=== PATIENT | male | born 1985 | race Caucasian/White ===

== ENCOUNTER 2023-12-05 22:13 | Emergency (ER) | payer OTHER, SELFPAY ==
[2023-12-05 22:25] VITALS: BP 141/87; PULSE 93; RESP 18; TEMP 37.2; O2SAT 98; BMI 36.6
== END 2023-12-06 | disposition left against medical advice (07) ==
LOC: ED 23:47
DX: Z53.21 Procedure and treatment not carried out due to patient leaving prior to being seen by health care provider (principal)

== ENCOUNTER 2023-12-06 08:42 | Emergency (ER) | payer BC, SELFPAY ==
[2023-12-06 08:51] VITALS: BP 145/95; PULSE 91; RESP 18; TEMP 36.3; O2SAT 98; BMI 37.3
--- NOTE | 2023-12-06 09:16 | CRLHL7_ITS ---
For Patients: As a result of the Cures Act, medical imaging exams and procedure reports are released immediately into your electronic medical record. You may view this report before your referring provider. If you have questions, please contact your health care provider. INDICATION: Chest pain. COMPARISON: Chest x-ray dated 22 May 2019. FINDINGS: PA and lateral chest x-rays show a normal cardiac silhouette. The lungs show no focal pulmonary opacities. Sharp pleural margins. No pneumothorax. IMPRESSION: No focal pulmonary opacities. No pneumothorax. Dictated by Julio C Carlisle MD @ 12/06/2023 9:53:51 AM (Electronically Signed)
--- NOTE | 2023-12-06 09:17 | ED.GENADULT ---
HPI - General Adult General Chief complaint: Flank Pain Stated complaint: Difficulty breathing, chest pain Time Seen by Provider: 12/06/23 08:58 History of Present Illness HPI narrative: Patient is a 38-year-old gentleman who comes in with 5 days of intermittent chest pain dysuria flank pain neck pain headache general malaise and fatigue. He is not able to identify any aggravating or alleviating factors. All symptoms are moderate in intensity. He has had no blood in his stool or urine. No shortness of breath with exertion. No other related symptoms. Patient takes Adderall and thyroid replacement as his only medications. Patient states he has been under quite a bit of stress recently and has been drinking more red bull. Related Data Home Medications ?Medication ?Instructions ?Recorded ?Confirmed levothyroxine 150 mcg tablet 150 mcg PO DAILY 12/06/23 12/06/23 methylphenidate HCl 36 mg 36 mg PO DAILY 12/06/23 12/06/23 tablet,extended release 24 hr (Concerta) Allergies Allergy/AdvReac Type Severity Reaction Status Date / Time Milk Containing Products Allergy Mild Verified 12/06/23 08:50 (Dairy) Review of Systems Status of ROS: Reports: 10 or more systems reviewed and unremarkable except as noted in History and below [facility] Medical History ADHD ?F90.9 - Attention-deficit hyperactivity disorder, unspecified type (ICD-10) Hypothyroidism ?E03.9 - Hypothyroidism, unspecified (ICD-10) Social History Smoking Status: Smoker, status unknown Exam Narrative: Exam Narrative: EXAM GENERAL: Patient appears comfortable and well. EYES: No scleral icterus. LYMPH: No supraclavicular or cervical lymphadenopathy. SKIN: Visible skin seen during exam normal or with benign process only. EXT: No dependent lower extremity pedal edema. HEART: Regular rate and rhythm with no murmurs, rubs, or gallops. LUNGS: Clear to auscultation bilaterally with no crackles or wheezes. ABD: Soft, non tender, non distended. PSYCH: Good eye contact, speech is not pressured. Const: Vital Signs, click to edit/add: Vital Signs - 24 hr 12/06/23 08:51 Temperature 97.4 F L Pulse Rate [Pulse Oximeter] 91 Respiratory Rate 18 Blood Pressure [Ri ght Upper Arm] 145/95 H Pulse Oximetry 98 Oxygen Delivery Me thod Room Air Course Course ED Course: This point will begin workup with D-dimer troponin CBC comprehensive metabolic panel UA chest x-ray. Vital Signs Vital signs: Initial Vital Signs Temperature 97.4 F L 12/06/23 08:51 Temperature Source Temporal Artery Scan 12/06/23 08:51 Pulse Rate 91 12/06/23 08:51 Pulse Rhythm Regular 12/06/23 08:51 Respiratory Rate 18 12/06/23 08:51 Blood Pressure 145/95 H 12/06/23 08:51 Blood Pressure Mean 111 H 12/06/23 08:51 Blood Pressure Position Sitting 12/06/23 08:51 Pulse Oximetry 98 12/06/23 08:51 Oxygen Delivery Method Room Air 12/06/23 08:51 Vital Signs Temperature 97.4 F L 12/06/23 08:51 Pulse Rate 91 12/06/23 08:51 Respiratory Rate 18 12/06/23 08:51 Blood Pressure 145/95 H 12/06/23 08:51 Pulse Oximetry 98 12/06/23 08:51 Oxygen Delivery Method Room Air 12/06/23 08:51 Temperature 97.4 F L 12/06/23 08:51 Pulse Rate 91 12/06/23 08:51 Respiratory Rate 18 12/06/23 08:51 Blood Pressure 145/95 H 12/06/23 08:51 Pulse Oximetry 98 12/06/23 08:51 Oxygen Delivery Method Room Air 12/06/23 08:51 Medical Decision Making MDM Narrative Medical decision making narrative: Patient is a 38-year-old with a number of symptoms today. Workup has shown that he is a new diabetic with a blood sugar greater than 350. Also has kidney stone on the right. In addition he has evidence of fatty liver both on CT and on transaminase levels. At this time I did for him of these diagnoses. We will ask him drink plenty of fluids and get plenty of rest. I did send off hemoglobin A1c and did recommend follow-up with his primary physician. He does have evidence of hydronephrosis no believe he is having active kidney stone pain at this time and I did not start him on Flomax. We did send him home with a stone collection kit. I recommend diet exercise and weight loss. He may be a good candidate for metformin or GLP 1 inhibitor. Again he will be following up with his primary physician this coming week. Lab Data Labs: Lab Results 12/06/23 12/06/23 Range/Units 09:31 09:35 WBC 4.75 (4.50-11.00) K/uL RBC 4.76 (4.30-5.90) m/uL Hgb 14.2 (13.5-17.5) gm/dL Hct 40.6 (37.0-53.0) % MCV 85 (80-100) fL MCH 30 (26-34) pg MCHC 35 (32-36) gm/dL RDW Coeff of Etelvina 12.3 (11.5-15.5) % Plt Count 158 (140-440) K/uL Neut % (Auto) 53.7 (42.0-72.0) % Lymph % (Auto) 34.9 (20-44) % Josephine % (Auto) 7.2 (0.0-11.0) % Eos % (Auto) 2.3 (0.0-7.0) % Baso % (Auto) 0.6 (0.0-3.0) % Neut # (Auto) 2.55 (1.7-7.0) K/uL Lymph # (Auto) 1.66 (0.90-2.90) K/uL Josephine # (Auto) 0.30 (0.00-0.90) K/UL Eos # (Auto) 0.11 (0.00-0.50) K/uL Baso # (Auto) 0.03 (0.00-0.30) K/uL Abs Immat Gran (auto) 0.06 (0.00-0.30) K/uL Imm/Tot Granulo (auto) 1.3 % D-Dimer Quant (PE/DVT) < 0.27 (0.00-0.50) ug/ml Sodium 133 L (135-149) mmol/L Potassium 3.8 (3.6-5.1) mmol/L Chloride 100 (96-114) mmol/L Carbon Dioxide 25 (20-32) mmol/L Anion Gap 8 (7-15) mEq/L BUN 15 (5-24) mg/dL Creatinine 0.7 (0.5-1.5) mg/dL Estimated Creat Clear 158.59 Estimated GFR 122 ml/min Glucose 324 H (60-115) mg/dL Calcium 8.8 (8.4-10.6) mg/dL Total Bilirubin 0.6 (0.1-1.5) mg/dL AST 66 H (12-35) U/L ALT 105 H (4-50) U/L Alkaline Phosphatase 78 (40-150) U/L Troponin I < 0.01 L (0.01-0.04) ng/mL Total Protein 6.8 (6.0-8.3) g/dL Albumin 4.0 (3.3-5.0) g/dL Lipase 60 (23-300) U/L Urine Color Yellow (Yellow) Urine Appearance Clear (Clear) Urine pH 5.5 (5.0-8.5) Ur Specific [place] 1.015 (1.000-1.030) Urine Protein Negative (Negative) Urine Glucose (UA) 2+ A (Negative) Urine Ketones Negative (Negative) Urine Blood 2+ A (Negative) Urine Nitrite Negative (Negative) Urine Bilirubin Negative (Negative) Urine Urobilinogen 0.2 (0.2-1.0) Ur Leukocyte Esterase Negative (Negative) Urine RBC 10-25 A (0-2) Urine WBC 0-2 (0-5) Ur Squamous Epith Cells Few (None-Few) Urine Bacteria Few A (None) Discharge Plan Discharge Clinical Impression: Diabetes mellitus, Kidney calculi, Fatty liver Instructions: Kidney Stones (ED), Non-Alcoholic Fatty Liver Disease (ED), Diabetic Hyperglycemia (ED) Additional Instructions: Strain urine Drink plenty of fluids Diet Exercise Weight loss Primary care follow-up Activity Level: No Restrictions Discharge Diet: Regular Prescriptions: No Action levothyroxine 150 mcg tablet 150 mcg PO DAILY methylphenidate HCl [Concerta] 36 mg tablet extended release 24hr 36 mg PO DAILY Follow Up/Referrals: Provider,Not a Local [Primary Care Provider] -
[2023-12-06 09:42] LABS: Basophils Absolute Auto 0.03 K/uL (0.00-0.30); Basophils Percent Auto 0.6 % (0.0-3.0); Eosinophils Absolute Auto 0.11 K/uL (0.00-0.50); Eosinophils Percent Auto 2.3 % (0.0-7.0); Hematocrit 40.6 % (37.0-53.0); Hemoglobin* 14.2 gm/dL (13.5-17.5); Immature Granulocytes Abs Auto 0.06 K/uL (0.00-0.30); Immature Granulocytes Pct Auto 1.3 %; Lymphocytes Absolute Auto 1.66 K/uL (0.90-2.90); Lymphocytes Percent Auto 34.9 % (20-44); Mean Corpuscular HGB Conc 35 gm/dL (32-36); Mean Corpuscular Hemoglobin 30 pg (26-34); Mean Corpuscular Volume 85 fL (80-100); Monocytes Percent Auto 7.2 % (0.0-11.0); Neutrophils Absolute Auto 2.55 K/uL (1.7-7.0); Neutrophils Percent Auto 53.7 % (42.0-72.0); Platelet Count* 158 K/uL (140-440); RDW Coefficient of Variation % 12.3 % (11.5-15.5); Red Blood Count 4.76 m/uL (4.30-5.90); White Blood Count* 4.75 K/uL (4.50-11.00)
[2023-12-06 09:43] LABS: Slide Review Reflex No
[2023-12-06 09:53] LABS: Appearance Urine Clear (Clear); Bilirubin Urine Negative (Negative); Blood Urine 2+ (Negative); Color Urine Yellow (Yellow); Glucose Urine 2+ (Negative); Ketones Urine Negative (Negative); Leukocyte Esterase Urine Negative (Negative); Nitrite Urine Negative (Negative); Protein Urine Negative (Negative); Specific Gravity Urine 1.015 (1.000-1.030); Urobilinogen Urine 0.2 (0.2-1.0); pH Urine 5.5 (5.0-8.5)
[2023-12-06 09:59] LABS: Chloride* 100 mmol/L (96-114)
[2023-12-06 10:00] LABS: Potassium* 3.8 mmol/L (3.6-5.1); Sodium* 133 mmol/L (135-149)
[2023-12-06 10:02] LABS: Alkaline Phosphatase* 78 U/L (40-150); Anion Gap 8 mEq/L (7-15); Aspartate Amino Transferase* 66 U/L (12-35); Bilirubin Total* 0.6 mg/dL (0.1-1.5); Blood Urea Nitrogen* 15 mg/dL (5-24); Carbon Dioxide* 25 mmol/L (20-32); Creatinine* 0.7 mg/dL (0.5-1.5); Est. Creatinine Clearance* 158.59; Estimated Glomerular Filt Rate 122 ml/min; Total Protein* 6.8 g/dL (6.0-8.3)
[2023-12-06 10:03] LABS: Alanine Aminotransferase* 105 U/L (4-50); Calcium* 8.8 mg/dL (8.4-10.6); Glucose* 324 mg/dL (60-115)
[2023-12-06 10:06] LABS: WBC Urine 0-2 (0-5)
[2023-12-06 10:07] LABS: Bacteria Urine Few; Squamous Epithelial Cell Urine Few (None-Few)
[2023-12-06 10:12] LABS: D Dimer Quantitative* < 0.27 ug/ml (0.00-0.50)
[2023-12-06 10:15] LABS: Troponin I* < 0.01 ng/mL (0.01-0.04)
--- NOTE | 2023-12-06 10:21 | CRLHL7_ITS ---
For Patients: As a result of the Century Cures Act, medical imaging exams and procedure reports are released immediately into your electronic medical record. You may view this report before your referring provider. If you have questions, please contact your health care provider. INDICATION: Concern for kidney stones flank pain TECHNIQUE: CT abdomen and pelvis without contrast. COMPARISON: None. FINDINGS: Lower chest: Right basilar probable granuloma. Liver: Severe fatty liver. Gallbladder and bile ducts: No stones or inflammation. No biliary dilatation. Pancreas: Unremarkable. No mass or inflammation. Spleen: Mild splenomegaly measuring 15.3 centimeters. Adrenal glands: Normal in size. No nodules. Kidneys: Low-attenuation lesion left lateral kidney incompletely assessed but may represent a cyst. No hydronephrosis is seen no renal calculi. There is a 5 millimeter probable right distal ureteral stone there is no dilatation of the ureter seen this is seen on 03/13 26 : GI tract: Unremarkable. Vasculature: Abdominal aorta is normal in caliber. Lymph nodes: No lymphadenopathy. Peritoneum/Abdominal Wall: Unremarkable. No sign of mass or infiltration. No free air or significant free fluid. Pelvis: Unremarkable. No pelvic masses. Bones: Unremarkable for age. IMPRESSION: 1. A 5 millimeter probable right distal ureteral stone there is no dilatation of the ureter seen there is no renal calculi or hydronephrosis visualized. 2. Severe fatty liver. Mild splenomegaly. Please note that all CT scans at this facility use dose modulation, iterative reconstruction, and/or weight-based dosing when appropriate to reduce radiation dose to as low as reasonably achievable. Dictated by Aimee Carlisle MD @ 12/06/2023 10:53:51 AM (Electronically Signed)
[2023-12-06 10:39] LABS: Lipase* 60 U/L (23-300)
[2023-12-06 11:20] LABS: Hemoglobin A1C* 9.1 % (0-5.6)
[2023-12-06 12:02] VITALS: BP 139/88; PULSE 82; RESP 16; TEMP 36.3
== END 2023-12-06 12:00 | disposition home or self-care (01) ==
LOC: ED 09:37
PROVIDERS: Emergency Provider Internal Medicine; Visit Provider Internal Medicine
DX: E11.9 Type 2 diabetes mellitus without complications (principal); N20.0 Calculus of kidney; K76.0 Fatty (change of) liver, not elsewhere classified
CPT/HCPCS: 36415; 71046; 74176; 80053; 81001; 81003; 83036; 83690; 84484; 85025; 85379; 87086; 93005; 99283; 99284; 99285

== ENCOUNTER 2024-02-16 11:58 | Emergency (ER) | payer BC, SELFPAY ==
--- OUTSIDE RECORDS SUMMARY | 2024-02-16 12:00 | XMS_ITS | Clinical Summary ---
Author Organization [facility] & [facility] Address [place] [address] Care Team Providers Care Bulb Grower Name Role Phone Love Mondragon MD Primary Care Provider [phone] Social History Tobacco Use Types Packs/Day Years Used Date Smoking Tobacco: Never Assessed Sex and Gender Information Value Date Recorded Sex Assigned at Not on file Legal Sex Male 3:14 PM CDT Gender Identity Not on file Sexual Orientation Not on file Plan of Treatment Not on file Insurance WC [employer] Care Teams Bulb Grower Relationship Specialty Start Date End Date Love Mondragon MD PCP - General 07/02/16
--- OUTSIDE RECORDS SUMMARY | 2024-02-16 12:00 | XMS_ITS | Clinical Summary ---
Author Organization [facility] Address [address] [address] Phone Care Team Providers Care Plant Protection Superintendent Name Role Phone Unavailable Primary Care Provider Unavailabl e Allergies No known active allergies Social History Tobacco Use Types Packs/Day Years Used Date Smoking Tobacco: Never Assessed Comments Unknown Sex and Gender Information Value Date Recorded Sex Assigned at Not on file Legal Sex Female 2:46 PM CDT Gender Identity Not on file Sexual Orientation Not on file Last Filed Vital Signs Vital Sign Reading Time Taken Comments Blood Pressure 150/101 11/10/2021 3:08 PM CDT Pulse 75 11/10/2021 3:08 PM CDT Temperature 37.1 C (98.8 F) 11/10/2021 3:08 PM CDT Respiratory Rate 16 11/10/2021 3:08 PM CDT Oxygen Saturation 98% 11/10/2021 3:08 PM CDT Inhaled Oxygen Concentration - - Weight 129.3 kg (285 lb) 11/10/2021 3:08 PM CDT Height 182.9 cm (6') 11/10/2021 3:08 PM CDT Body Mass Index 38.65 11/10/2021 3:08 PM CDT Plan of Treatment Health Maintenance Due Date Last Done Comments Cervical Cancer Screening 1986 Last pap w/ HPV Testing 1986 Last pap w/o HPV Testing 1986 Hepatitis B Vaccine (Standin g Order) (1 of 3 - 19+ 3-dose series) 2005 PERTUSSIS (Standing Order) 2005 TETANUS (Standing Order) 2005 COVID-19 Vaccine (2023-2 5 season) 2023 Influenza Vaccine Seasonal (Standing Order) (#1) 2023 HPV Vaccine (Standing Order) Aged Out No longer eligible based on patient's age to complete this topic Pneumococcal/PCV20 Vaccine: Pediatrics (2-5 yrs) and At-Risk Patients (6-64 yrs) (Standing Order) Aged Out No longer eligible b ased on patient's age to complete this topic Insurance [employer] [id number]
--- OUTSIDE RECORDS SUMMARY | 2024-02-16 12:01 | XMS_ITS | Encounter Summary ---
Author Organization [facility] Address [address] [place] [address] Care Team Providers Care Car Clerk Pullman Name Role Phone Love Mondragon MD Primary Care Provider [phone] Reason for Visit * Reason Comments RESULTS, TEST Encounter Details Date Type Department Care Team (Late st Contact Info) Description 01/09/2024 Telephone [facility] [address] [place] [address] [place] [address] [place] [address] RESULTS, TEST Social History Tobacco Use Types Packs/Day Years Used Date Smoking Tobacco: Never Cigarettes Qu it: 02/10/2005 Smokeless Tobacco: Never Alcohol Use Standard Drinks/Week Comments Yes 0 (1 standard drink = 0.6 oz pur e alcohol) occasionally PHQ-2 Answer Date Recorded PHQ-2 Score 0 07/21/2023 Sex and Gender Information Value Date Recorded Sex Assigned at Not on file Gender Identity Not on file Sexual Orientation Not on file documented as of this encounter Nursing Notes * Roselyn Garcia RN - 01/20/2024 8:09 AM CST Relayed Love Mondragon MD's message below to patient. Pt has a meeting in 5 minutes, so declined to be transferred to [facility]. Number given to pt. He will call back and schedule. Roselyn Garcia RN 01/20/2024, 8:10 AM CTOR OF SAFETY * Love Mondragon MD - 01/16/2024 5:21 PM CST I would want patient to schedule an OV to further discuss. Love Mondragon MD 01/16/2024, 5:21 PM CTOR OF SAFETY * Penny Ramirez RN - 01/16/2024 11:[address] Mondragon - please review and advise: RN relayed information/recommendations to pt from Dr. Mondragon. Pt asked if he can get another CT that would actually scan and look for the sternal region this time? Penny Ramirez RN 01/16/2024, 11:47 AM CTOR OF SAFETY * Love Mondragon MD - 01/16/2024 11:17 AM CST Cxray from 12/18 does not show sternal irregularities. His CT abd/pelvis only scans bottom portion of lungs so would not include sternal region. Love Mondragon MD 01/16/2024, 11:18 AM CTOR OF SAFETY * Jenny Camarillo CMA - 01/12/2024 9:23 AM CST Called and relayed information to pt. Pt understands information below and agrees with plan. Pt states he would like for Love Mondragon MD to look at the CT and xray again as he forgot to mention that about 4 years ago he was hit in hockey and has had a lump under his sternum ever since then. He states he doesn't know if this is contributing to his sxs and pain but wanted to see if Love Mondragon MD saw any irregularities. Okay to wait for Love Mondragon MD to return and review on 01/16/24 Jenny Camarillo CMA 01/12/2024, 9:25 AM CTOR OF SAFETY * Elyssa Vences CMA - 01/09/2024 2:03 PM CST Left patient message to call back. Elyssa Vences CMA 01/09/2024, 2:04 PM CTOR OF SAFETY * Elyssa Vences CMA - 01/09/2024 2:03 PM CST ----- Message from Lorrie Vicente sent at 01/09/2024 1:32 PM DIRECTOR OF SAFETY ----- Covering for PCP. Please call patient and let him know that stress echocardiogram showed no concerning findings. CTOR OF SAFETY documented in this encounter Plan of Treatment Not on file documented as of this encounter Visit Diagnoses Not on filedocumented in this encounter Care Teams Car Clerk Pullman Relationship Specialty [place] [address] [place] [address] PCP - General Family Practice 09/18/12 documented as of this encounter
--- OUTSIDE RECORDS SUMMARY | 2024-02-16 12:01 | XMS_ITS | Encounter Summary ---
Author Organization [facility] Address [address] [place] [address] Care Team Providers Care Stream Control Officer Name Role Phone Love Mondragon MD Primary Care Provider [phone] Reason for Visit * Consult/Transfer Care (Routine) - New Request Specialty Diagnoses / Procedures Referred By Contac t Referred To Contact Diagnoses Type 2 diabetes mellitus with obesity (HRC) [place] [address] [place] [address] Referral ID Status Reason Start Date Expiration Date V isits Requested Visits Authorized [id number] New Request 12/19/2023 03/19/2025 1 1 Encounter Details Date Type Department Care Team (Latest Contact Info) Description 01/12/2024 10:30 AM GOLF COURSE MECHANIC Telemedicine Diabetes Education at [facility] [address] [place] [address] Emily Alberto, MALLORYN, LD, [facility] [address] [place] [address] Type 2 diabetes mellitus without complication, without long-term current use of insulin (HRC) (Primary Dx) Social History Tobacco Use Types Packs/Day Years [...] on file documented as of this encounter Patient Instructions * Patient Instructions* Emily Alberto RDN, SORAIDA, RENY - 01/12/2024 10:30 AM GOLF COURSE MECHANIC What if the [employer] Libre3+ sensor falls off early? Replace the sensor and start a new sensor. If the sensor falls off early, please call [employer] Customer Support at for potential replacement. Tips to help keep the Libre3+ CGM on all 14 days: -Tegaderm or Coban (on top of sensor) -Razor (shave off any extra hair on back of arm) -Skin Tac (underneath the sensor): a hypo-allergenic and latex-free ???tacky?? skin barrier -Mastisol Liquid Skin Adhesive (underneath the sensor): a clear, non-irritating liquid adhesive - Adhesive patch (on top of sensor): examples: Fixic, Not Just a Patch, SimPatch, Grif Senior Database Engineer, Pump Peelz, ExpressionMed, Skin Reinforced Steel Placing Supervisor, Type Strong, etc (just google for options) To register for ongoing support and info on how to use your Libre3, sign up at: [email or web address] COURSE MECHANIC * Attachments The following attachments cannot be sent through Care Everywhere. * !Diabetes: What you need to know (Comoran) * !Diabetes Meal Planning ([place]oran) documented in this encounter Progress Notes * Emily Alberto, RDN, LD, [facility] - 01/12/2024 10:30 AM CST Images from the original note were not included. Subjective: Called [facility] for diabetes education video visit. This is an individual appointment. No group option available/appropriate for patient at this time. What is the most important concern you want to discuss today? Reports he just started Libre3 and finds the information helpful Asking how to best use CGM data Wondering about what happens when glucose is elevated How are you feeling about having diabetes? Its a learning curve Is there anything preventing you from managing your diabetes? no Patient has experienced the following symptoms: None. Is your CGM affordable? yes Are you using any technology to help manage your diabetes? Libre3, sharing on Mango Current diabetes medications: none, declines medications taking Berberine supplement and meeting with diabetes ed through [facility] clinic Schedule: , has five young children, Works full-time in sedentary job Food Recall: eating two meals per day Snacks: eggs, nuts, cheese stick Nutrition changes - stopped sugared energy drinks & soda (previously drinking 2x/day) Beverages - tea (sweetened with honey), and water Current physical activity - just signed up for [employer] Objective: Wt Readings from Last 3 Encounters: 12/19/23 270 lb (122.5 kg) 06/28/22 286 lb 12.8 oz (130.1 kg) 04/03/20 285 lb (129.3 kg) Hemoglobin A1C Date Value Ref Range Status 07/21/2023 8.6 (H) <=5.6 % Final 06/28/2022 6.8 (H) <=5.6 % Final 10/13/2020 5.9 (H) <=5.6 % Final Lab results related to diabetes have been reviewed. Assessment and Plan: Reviewed goal/target BG and A1c levels, and risk of complications from persistently elevated glucose. Discussed how carbs/diet, exercise, and weight affect BG, but also many other factors. Reviewed MyPlate, and the importance of three small meals per day. Encouraged RD appointment to better understand effects of diet and to optimize nutrition intake. Strongly encouraged adding medication and briefly discussed options, however, patient declined at this time with preference of continuing lifestyle changes and reassess in a couple months. Discussed CGM use in detail, including how to interpret and use glucose data. Discussed GMI and TIR. Plan: Obtain updated HgbA1c Meet with dietitian Continue with lifestyle changes Goals: Date: Category: Goals: Progression: 01/12/2024 Monitoring Diabetes Monitor glucose daily On Track Mailed home x2 different CGM handouts and the [employer] handout Follow-up in 1-2 months. Quick schedule text sent to patient. This visit was conducted as a: Video Visit Location of clinician: clinic Location of patient: home Time spent on video in [id number] contact with patient, if applicable: 55 minutes Education content taught can be found in the diabetes education smartform COURSE MECHANIC documented in this encounter Plan of Treatment Scheduled Orders Name Type Priority Associated Diagnoses Orde r Schedule Hgb A1C Lab Routine Type 2 diabetes mellitus without complication, without long-term current use of insulin (HRC) Expected: 01/19/2024 (Approximate), Expires: 07/12/2024 documented as of this encounter Visit Diagnoses Diagnosis Type 2 diabetes mellitus without complication, without long-term current use of insulin (HRC)- Primary documented in this encounter Care Teams Stream Control Officer Relationship Specialty [place] [address] [place] [address] PCP - General Family Practice 09/18/12 documented as of this encounter
--- OUTSIDE RECORDS SUMMARY | 2024-02-16 12:01 | XMS_ITS | Clinical Summary ---
Author Organization [facility] Address [address], [place] [address] Care Team Providers Care Rn Infusion Name Role Phone Love Mondragon MD Primary Care Provider [phone] Source Comments You are receiving this document as you are listed as the primary care provider,follow-up provider, or the patient has been referred to you for consultation.This is in compliance with the Medicare and[place] EHR Incentive Program,which states Providers who transition their patient to another setting of careor provider of care or refers their patient to another provider of care shouldprovide summary care record for each transition of care or referral. [facility] Active Allergy Reactions Criticality Noted Date Comments Other Other, see comments 06/28/2022 Dairy: Upset stomach and loose stool Medications Medication Sig Dispensed Refills Start Date End Date Status CLINDAMYCIN PHOSPHATE (CLEOCIN-T) 1% TOPICAL SOLNIndications:Othe r acne Apply a thin film topically to the affected area(s) twice a day 1bottle prn 01/23/2004 Active MULTI-VITAMIN/IRON OR takes 1 a day 01/29/2007 Active acyclovir (ZOVIRAX) 5 % ointment apply TID for outbreaks 15 gram 2 09/14/2008 Active FISH OIL three times a day. Active Naproxen (ECNAPROSYN) 500 MG enteric coated tablet Take 1 Tab by mouth two times a day with meals. 60 Tab 3 07/16/2016 Active ibuprofen (MOTRIN) 600 MG tablet Take 1 Tab by mouth every 6 hours as needed for Pain. 20 Tab 04/14/2017 Active diclofenac (VOLTAREN) 25 MG enteric coated tablet Take 1 Tab by mouth two times daily as needed. 60 Tab 1 05/09/2017 Active ALBUterol sulfate HFA 108 (90 Base) MCG/ACT inhalerIndications:S OB (shortness of breath) Inhale 2 Puffs every 4 hours as needed for Wheezing. 1 Each 2 10/13/2020 Active acyclovir (ZOVIRAX) 5 % ointment Apply TID for outbreaks 15 g 2 06/28/2022 Active levothyroxine (SYNTHROID) 150 MCG tabletIndications:Hy pothyroidism, unspecified type (HRC) Take 1 Tablet (150 mcg) by mouth daily. 30 Tablet 11 07/21/2023 Active Continuous Glucose Sensor (FREESTYLE UCHE 3 PLUS SENSOR) MISCIndications:Type 2 diabetes mellitus without complication, without long-term current use of insulin (HRC) Change every 15 days 2 Each 11 12/29/2023 Active CONCERTA 36 MG controlled release tablet Take 1 Tablet (36 mg) by mouth daily. 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 . Good from 11/28-11/29. Love Mondragon MD 11/27/2018, 9:09 AM Encounters Date Type Department Care Team Description 01/12/2024 10:30 AM PRINTED CIRCUIT BOARDS LAMINATOR Telemedicine Diabetes Education at [address] [place] [phone] Emily Alberto, MALLORYN, LD, CDCES Type 2 diabetes mellitus without complication, without long-term current use of insulin (HRC) (Primary Dx) 01/09/2024 10:00 AM PRINTED CIRCUIT BOARDS LAMINATOR Procedure Visit [facility] Cardiac Non-Invasive Lab [address] [place] [address] Aung Matt 01/09/[address] [phone] Love Mondragon MD RESULTS, TEST 01/05/[address] [phone] Love Mondragon MD Refill (CONCERTA 36 MG controlled release tablet) 12/29/2023 2:00 PM PRINTED [employer] BOARDS LAMINATOR Telemedicine [address] [address] Eda Kat RN Type 2 diabetes mellitus without complication, without long-term current use of insulin (HRC) (Primary Dx) 12/22/[address] [phone] Love Mondragon MD RESULTS, TEST 12/19/2023 2:20 PM PRINTED CIRCUIT BOARDS LAMINATOR Ancillary Procedure [facility] [address] [address] Scan [id number] [place] [address] Love Mondragon MD Kidney stones; Right flank pain 12/19/2023 10:40 AM PRINTED [employer] BOARDS LAMINATOR Lab Visit Laboratory at [address] [phone] Kidney stones; Right flank pain 12/19/2023 10:20 AM PRINTED [employer] BOARDS LAMINATOR Ancillary Procedure Radiology at [address] [phone] Love Mondragon MD Left-sided chest pain 12/19/2023 9:30 AM PRINTED [employer] BOARDS LAMINATOR Office Visit [address] [phone] Love Mondragon MD Left-sided chest pain (Primary Dx); Kidney stones; Right flank pain; Splenomegaly; Type 2 diabetes mellitus with obesity (HRC); Neck pain; Upper back pain; Chronic low back pain without sciatica, unspecified back pain laterality; Fatty liver (HRC) 12/19/2023 Telephone [facility] [address] [place] [phone] Love Mondragon MD from Last 3 Months Immunizations Name Administration Dates Next Due DTP 05/04/1991, 9,1986, 987,1986 Flu Vac (3+ yrs) 01/06/2008,02/19/2005 Flu Vac Preserv Free (3+yrs) 02/21/2009 H1n1 Miv Sanofi 3+ Yr (Injected) 02/21/2009 HepA Adult (19+ yrs) 07/04/2016 HepB Ped/Adol (0-18 yrs) 02/13/1999,06/09/1998,0 05/02/1998 Hib (HbOC) 04/29/1988 Influenza IIV4 (Quadrivalent ) 0.5mL (54524) 11/27/2018 Influenza LAIV3 2-49 years (Flumist) 01/03/2010 MCV4 (Menactra) 02/19/2005 MMR 05/02/1998,08/08/1987 OPV, Trivalent (Orimune or tOPV) 992,04/29/1988,1986, 987 Td 05/02/1998 Tdap 04/12/2015,01/06/2008 Varicella 04/26/1997(Deferred: Immune by Dewayne westfall) Family History Medical History Relation Name Comments Thyroid Disorder Mother Deafness Maternal Grandfather Diabetes Maternal Grandmother Diabetes, Type II Maternal Grandmother Cancer, Other Paternal Grandfather Asthma Sister Relation Name Status Comments Father Alive Mother Alive Maternal Grandfather Maternal Grandmother Paternal Grandfather Sister Alive Social History Tobacco Use Types Packs/Day Years Used Date Smoking Tobacco: Never Cigarettes Qu it: 02/10/2005 Smokeless Tobacco: Never Tobacco Cessation:Counseling Given: Not Answered Alcohol Use Standard Drinks/Week Comments Yes 0 (1 standard drink = 0.6 oz pur e alcohol) occasionally PHQ-2 Answer Date Recorded PHQ-2 Score 0 07/21/2023 Sex and Gender Information Value Date Recorded Sex Assigned at Not on file Gender Identity Not on file Sexual Orientation Not on file Last Filed Vital Signs Vital Sign Reading Time Taken Comments Blood Pressure 122/85 12/19/2023 9:27 AM PR[employer]ED [employer] BOARDS LAMINATOR Pulse 71 12/19/2023 9:27 AM [employer]ED [employer] BOARDS LAMINATOR Temperature 36.6 C (97.9 F) 12/19/2023 9:27 AM [employer]ED [employer] BOARDS LAMINATOR Respiratory Rate 20 12/19/2023 9:27 AM PR[employer]ED [employer] BOARDS LAMINATOR Oxygen Saturation 97% 12/19/2023 9:27 AM [employer]ED [employer] BOARDS LAMINATOR Inhaled Oxygen Concentration - - Weight 122.5 kg (270 lb) 12/19/2023 9:27 AM PRINTED CIRCUIT BOARDS LAMINATOR Height 183.9 cm (6' 0.4) 06/28/2022 1:47 PM CDT Body Mass Index 36.22 06/28/2022 1:47 PM CDT Plan of Treatment Health Maintenance Due Date Last Done Comments Diabetes: Eye Exam 1986 Diabetes: Foot Exam 1986 Diabetes: Urine Microalbumin 1986 Hep C Screening (Preventive Services) 1986 Pneumococcal (1 - PCV) 1992 HepA (2 of 2 - Risk 2-dose series) 01/04/2017 07/04/2016 COVID-19 Vaccine ( - season) 2023 Influenza (#1) 2023 11/27/2018, 12/12, 02/21/2009, Additional history exists Diabetes: HGBA1C 10/21/2023 07/21/2023, , 10/13/2020, Additional history exists Adult Preventive Visit 06/28/2024 , 09/21/2012, 02/21/2009, Additional history exists Diabetes: Creatinine 12/18/2024 12/19/2023, 07/21/2023, 06/28/2022, Additional history exists DTaP/Tdap/Td (8 - Tdap) 04/11/2025 04/12/19 16, 01/06/2008, 05/02/1998, Additional history exists Diabetes: Lipid Panel 07/20/2028 07/21/2023 , 06/28/2022, 10/13/2020, Additional history exists Zoster/Shingles (1 of 2) 2036 Hib Completed 04/29/1988 IPV (Polio) Completed 05/04/1991, 04/11, 1986, Additional history exists HepB Completed 02/13/1999, 05/13, 05/02/1998 MCV4 Completed 02/19/2005 HIV Screening (Preventive Services) Completed 01/03/2010 Cholesterol Discontinued 07/21/2023, 06/10, 10/13/2020, Additional history exists HPV Vaccine Aged Out No longer eligi ble based on patient's age to complete this topic Procedures Procedure Name Priority Date/Time Associated Diagnosis Comments EJECTION FRACTION Routine 01/09/2024 10: 36 AM [employer]ED [employer] BOARDS LAMINATOR STRESS ECHO Routine 01/09/2024 10:36 AM [employer]ED [employer] BOARDS LAMINATOR Left-sided chest pain CT ABD PELVIS WO IV CONT STONE Same Day 12/19/2023 2:38 PM [employer]ED [employer] BOARDS LAMINATOR Kidney stones Right flank pain URINE CULTURE Routine 12/19/2023 10:34 AM [employer] BOARDS LAMINATOR Kidney stones UA MICRO Routine 12/19/2023 10:34 AM [employer] BOARDS LAMINATOR Kidney stones URINALYSIS ROUTINE, MICRO/CULTURE IF POS Routine 12/19/2023 10:34 AM [employer]ED [employer] BOARDS LAMINATOR Kidney stones BASIC METABOLIC PANEL Routine 12/19/2023 10:30 AM [employer]ED [employer] BOARDS LAMINATOR Right flank pain COMPLETE BLOOD COUNT-NO DIFF Routine 12/19/2023 10:30 AM [employer] BOARDS LAMINATOR Right flank pain XR CHEST 2 VIEWS Routine 12/19/2023 10:2 3 AM [employer]ED [employer] BOARDS LAMINATOR Left-sided chest pain HGB A1C Routine 07/21/2023 10:00 AM CDT Screening for diabetes mellitus LIPID PANEL & DIRECT LDL (IF NEEDED) Routine 07/21/2023 10:00 AM CDT Screening cholesterol level HIV ANTIBODY Routine 01/03/2010 11:53 AM [employer]ED [employer] BOARDS LAMINATOR Screen for STD (sexually transmitted disease) from Last 3 Months or Most Recently Relevant to Health Maintenance Results * Stress Echocardiogram (01/09/2024 10:36 AM PRINTED CIRCUIT BOARDS LAMINATOR) 01/09/2024 10:3 6 AM [employer]INTED CIRCUIT BOARDS LAMINATOR Narrative PROS[facility] - 01/09/2024 11:50 AM PR[employer]ED [employer] BOARDS LAMINATOR Summary 1. The patient exercised for 11 minute(s) on the Rogers protocol and achieved 92 % of maximum predicted HR. Study was diagnostic. 2. Above normal functional capacity for age. The treadmill was stopped due to leg discomfort and fatigue. 3. Based on Erickson Score of 11 the patient is at Low risk for cardiovascular events. 4. The patient experienced 3/10 shortness of breath and 2/10 lightheaded/pre- syncope at peak exercise during the stress test. After 3 minutes of recovery the symptoms resolved. 5. Negative stress ECG for ST segment depression. Normal hemodynamic response. Isolated PVCs noted. 6. A prior study is not available for comparison. 7. Normal Stress Echo test, no evidence for ischemia. Report Signatures Stress ECG Finalized by Raymond Little on 01/09/2024 11:50 AM Echo Finalized by Raymond Little on 01/09/2024 11:50 AM Procedure Note Raymond Little MD - 01/09/2024 Summary 1. The patient exercised for 11 minute(s) on the Rogers protocol andachieved 92 % of maximum predicted HR. Study was diagnostic. 2. Above normal functional capacity for age. The treadmill was stoppeddue to leg discomfort and fatigue. 3. Based on Erickson Score of 11 the patient is at Low risk forcardiovascular events. 4. The patient experienced 3/10 shortness of breath and 2/10lightheaded/pre- syncope at peak exercise during the stress test. After 3minutes of recovery the symptoms resolved. 5. Negative stress ECG for ST segment depression. Normal hemodynamicresponse. Isolated PVCs noted. 6. A prior study is not available for comparison. 7. Normal Stress Echo test, no evidence for ischemia. Report Signatures Stress ECG Finalized by Raymond Little on 01/09/2024 11:50 AM Echo Finalized by Raymond Little on 01/09/2024 11:50 AM Love Mondragon MD ET ECHO ORDERABLES Performing Organization Address [facility] Co de Phone Number [facility] [address] [place] [address] * EJECTION FRACTION (01/09/2024 10:36 AM PRINTED CIRCUIT BOARDS LAMINATOR) EF 60 % PROSOLV EF test type CATH PROS[facility] 01/09/2024 10:3 6 AM PRINTED CIRCUIT BOARDS LAMINATOR Love Mondragon MD HEART CENTER CATH LA B/RH Performing Organization Address [facility] Co de Phone Number [facility] [address] [place] [address] * CT Abd Pelvis WO IV Cont Stone (12/19/2023 2:38 PM PRINTED CIRCUIT BOARDS LAMINATOR) Anatomical Region Laterality Modality Abdomen, Pelvis Computed Tomogra phy 12/19/2023 2:26 PM PRINTED [employer] BOARDS LAMINATOR Impressions 12/19/2023 3:57 PM [employer]ED [employer] BOARDS LAMINATOR 1. Nonobstructive 0.4 x 0.2 x 0.3 cm calculus within the right mid-distal ureter, at the level of the inferior margin of the right sacroiliac joint, approximately 7.0-7.5 cm proximally from the right ureterovesicular junction. 2. No other urinary tract calculi. 3. Diffuse hepatic steatosis. 4. Splenomegaly, with maximal splenic span length of 15 cm; no focal suspicious splenic lesions identified. Narrative 12/19/2023 3:57 PM PRINTED [employer] BOARDS LAMINATOR COMPARISON: None. Specifically, no outside prior examinations are available for comparison at the time of image interpretation. TECHNIQUE: Images were obtained through the abdomen and pelvis without contrast using a renal stone protocol. FINDINGS: LUNG BASES: Calcified granuloma at the right lung base, reflecting sequelae of distant prior granulomatous disease. LIVER: Diffuse hepatic steatosis, with patchy foci of fatty sparing around the gallbladder fossa. The hepatic capsular contour is not nodular. GALLBLADDER AND BILIARY TREE: Mildly hyperdense gallbladder sludge identified; no CT evidence of acute cholecystitis. No intrahepatic or extrahepatic biliary ductal dilation. PANCREAS: Unremarkable. SPLEEN: Splenomegaly, maximal splenic span/length of 15 cm (series 3, image 39; series 5, image 57). No focal suspicious splenic lesion identified. ADRENALS: Unremarkable. KIDNEYS, URETERS, AND BLADDER: No hydronephrosis bilaterally. 3.0 cm simple- appearing cyst within the superior pole of the left kidney laterally. No perinephric fat stranding. No perinephric fluid collections. No renal calculi. 0.4 x 0.2 0.3 cm nonobstructive calculus within the mid-distal right ureter at the level of the inferior margin of the right sacroiliac joint (series 3, image 124), approximately 7.0-7.5 cm proximally from the right ureterovesicular junction. Diminutive urachal remnant at the anterior-superior margin of the bladder. Bladder otherwise unremarkable. VESSELS: No abdominal aortic aneurysm. BOWEL: The stomach is filled with ingested enteric contents. The small bowel is decompressed. Specifically, no small bowel obstruction. The terminal ileum is not inflamed. The appendix is not inflamed. No evidence of acute colonic diverticulitis or colitis. REPRODUCTIVE ORGANS: No pelvic masses. MESENTERY/PERITONEUM: No pneumatosis, portal venous gas, or intra-abdominal free air. No adenopathy by size criteria. No ascites. RETROPERITONEUM: No adenopathy. ABDOMINAL WALL/SOFT TISSUES: Unremarkable. BONES: Scattered Schmorl's nodes throughout the lower thoracic spine. Straightening of the bilateral femoral head-neck junctions, with diminutive synovial herniation pits identified at the lateral aspect of the left femoral head-neck junction. Subcentimeter os acetabulum at the periphery of the left hip joint. No acute fracture. Procedure Note Ed Garcia MD - 12/19/2023 COMPARISON: None. Specifically, no outside prior examinations areavailable for comparison at the time of image interpretation. TECHNIQUE: Images were obtained through the abdomen and pelvis withoutcontrast using a renal stone protocol. FINDINGS: LUNG BASES: Calcified granuloma at the right lung base, reflectingsequelae of distant prior granulomatous disease. LIVER: Diffuse hepatic steatosis, with patchy foci of fatty sparing aroundthe gallbladder fossa. The hepatic capsular contour is not nodular. GALLBLADDER AND BILIARY TREE: Mildly hyperdense gallbladder sludgeidentified; no CT evidence of acute cholecystitis. No intrahepatic orextrahepatic biliary ductal dilation. PANCREAS: Unremarkable. SPLEEN: Splenomegaly, maximal splenic span/length of 15 cm (series 3,image 39; series 5, image 57). No focal suspicious splenic lesionidentified. ADRENALS: Unremarkable. KIDNEYS, URETERS, AND BLADDER: No hydronephrosis bilaterally. 3.0 cmsimple- appearing cyst within the superior pole of the left kidneylaterally. No perinephric fat stranding. No perinephric fluid collections.No renal calculi. 0.4 x 0.2 0.3 cm nonobstructive calculus within themid-distal right ureter at the level of the inferior margin of the rightsacroiliac joint (series 3, image 124), approximately 7.0-7.5 cmproximally from the right ureterovesicular junction. Diminutive urachalremnant at the anterior-superior margin of the bladder. Bladder otherwiseunremarkable. VESSELS: No abdominal aortic aneurysm. BOWEL: The stomach is filled with ingested enteric contents. The smallbowel is decompressed. Specifically, no small bowel obstruction. Theterminal ileum is not inflamed. The appendix is not inflamed. No evidenceof acute colonic diverticulitis or colitis. REPRODUCTIVE ORGANS: No pelvic masses. MESENTERY/PERITONEUM: No pneumatosis, portal venous gas, orintra-abdominal free air. No adenopathy by size criteria. No ascites. RETROPERITONEUM: No adenopathy. ABDOMINAL WALL/SOFT TISSUES: Unremarkable. BONES: Scattered Schmorl's nodes throughout the lower thoracic spine.Straightening of the bilateral femoral head-neck junctions, withdiminutive synovial herniation pits identified at the lateral aspect ofthe left femoral head-neck junction. Subcentimeter os acetabulum at theperiphery of the left hip joint. No acute fracture. IMPRESSION 1. Nonobstructive 0.4 x 0.2 x 0.3 cm calculus within the right mid-distalureter, at the level of the inferior margin of the right sacroiliac joint,approximately 7.0-7.5 cm proximally from the right ureterovesicularjunction. 2. No other urinary tract calculi. 3. Diffuse hepatic steatosis. 4. Splenomegaly, with maximal splenic span length of 15 cm; no focalsuspicious splenic lesions identified. Love Mondragon MD RAD CT * Urine Culture (12/19/2023 10:34 AM PRINTED CIRCUIT BOARDS LAMINATOR) Urine Culture No Growth After 1 Day 12/20/2023 5:25 PM [facility] Urine URINE SPECIMEN COLLECTION, CLEAN CATCH / Unknown Non-blood Collection / Unknown 12/19/2023 10:34 AM [employer] BOARDS LAMINATOR 12/19/2023 10:34 AM PR[employer]ED CIRCUIT BOARDS LAMINATOR Love Mondragon MD LAB_1 [place] [address], [facility] * (ABNORMAL) Urinalysis Routine, Micro/Culture if Pos: Clean Catch (12/19/2023 10:34 AM PRINTED CIRCUIT BOARDS LAMINATOR) Urine Microscopic Evaluation Reflex Order Comment Urinalysis results meet criteria for reflex, urine microscopic evaluation performed. 12/19/2023 10:46 AM PRINTED CIRCUIT BOARDS LAMINATOR [facility] Color Yellow 12/19/2023 10:46 AM PRINTED CIRCUIT BOARDS LAMINATOR [facility] Clarity Clear Clear 12/19/2023 10:46 AM PRINTED [employer] BOARDS LAMINATOR [facility] Specific [place] >=1.030(A) 1.005 - 1.030 12/19/2023 10:46 AM PR[employer]ED [employer] BOARDS LAMINATOR [facility] pH 5.5 5.0 - 8.0 12/19/2023 10:46 AM PR[employer]ED [employer] BOARDS LAMINATOR [facility] Protein 30(A) Neg/Trace mg/dL 12/19/2023 10:46 AM PR[employer]ED [employer] BOARDS LAMINATOR [facility] Glucose Negative Negative mg/dL 12/19/2023 10:46 AM PR[employer]ED [employer] BOARDS LAMINATOR [facility] Ketones Negative Negative mg/dL 12/19/2023 10:46 AM PRINTED [employer] BOARDS LAMINATOR [facility] Urobilinogen 0.2 <2.0 EU/dL 12/19/2023 10:46 AM PR[employer]ED [employer] BOARDS LAMINATOR [facility] Bilirubin Small(A) Negative 12/19/2023 10:46 AM PR[employer]ED [employer] BOARDS LAMINATOR [facility] Blood Small(A) Neg/Trace 12/19/2023 10:46 AM PR[employer]ED CIRCUIT BOARDS LAMINATOR [facility] Nitrite Negative Negative 12/19/2023 10:46 AM PRINTED [employer] BOARDS LAMINATOR [facility] Leukocyte Esterase Negative Negative 12/19/2023 10:46 AM PRINTED [employer] BOARDS LAMINATOR [facility] Source Clean Catch 12/19/2023 10:46 AM PRINTED CIRCUIT BOARDS LAMINATOR [facility] Urine URINE SPECIMEN COLLECTION, CLEAN CATCH / Unknown Non-blood Collection / Unknown 12/19/2023 10:34 AM PR[employer]ED CIRCUIT BOARDS LAMINATOR 12/19/2023 10:34 AM PR[employer]ED CIRCUIT BOARDS LAMINATOR Love Mondragon MD LAB_1 Performing Organization Address [facility] de Phone Number [facility] [address] [place] [phone] * (ABNORMAL) Urine Microscopic Evaluation: Clean Catch (12/19/2023 10:34 AM PRINTED CIRCUIT BOARDS LAMINATOR) Urine Culture Comment Urinalysis results do not meet criteria for urine culture reflex. 12/19/2023 10:46 AM PRINTED CIRCUIT BOARDS LAMINATOR [facility] Red Blood Cells 4-7(A) 0 - 3 /HPF 12/19/2023 10:46 AM PR[employer]ED [employer] BOARDS LAMINATOR [facility] White Blood Cells 0-5 0 - 5 /HPF 12/19/2023 10:46 AM PR[employer]ED [employer] BOARDS LAMINATOR [facility] Bacteria Occasional(A) None Seen /HPF 12/19/2023 10:46 AM PR[employer] BOARDS LAMINATOR [facility] Squamous Epithelial Cells Few None Seen, Occasiona l, Few /HPF 12/19/2023 10:46 AM PR[employer] BOARDS LAMINATOR [facility] Mucus Present(A) None Seen /HPF 12/19/2023 10:46 AM PR[employer] BOARDS LAMINATOR [facility] Urine URINE SPECIMEN COLLECTION, CLEAN CATCH / Unknown Non-blood Collection / Unknown 12/19/2023 10:34 AM PR[employer]ED [employer] BOARDS LAMINATOR 12/19/2023 10:34 AM PR[employer]ED [employer] BOARDS LAMINATOR Love Mondragon MD LAB_1 Performing Organization Address [facility]/ZIP Co de Phone Number [facility] [address] [place] [address] * (ABNORMAL) BMP (12/19/2023 10:30 AM PRINTED CIRCUIT BOARDS LAMINATOR) Sodium 140 136 - 145 mmol/L 12/19/2023 4:26 PM PRINTED CIRCUIT BOARDS LAMINATOR [facility] Potassium 4.3 3.5 - 5.1 mmol/L 12/19/2023 4:26 PM PRINTED [employer] BOARDS LAMINATOR [facility] Chloride 109 98 - 109 mmol/L 12/19/2023 4:26 PM [facility] CO2 21 20 - 29 mmol/L 12/19/2023 4:26 PM [facility] Anion Gap 10 6 - 16 mmol/L 12/19/2023 4:26 PM [facility] Calcium 9.5 8.4 - 10.4 mg/dL 12/19/2023 4:26 PM [facility] BUN 11 7 - 26 mg/dL 12/19/2023 4:26 PM [facility] Creatinine 0.80 0.73 - 1.18 mg/dL 12/19/2023 4:26 PM [facility] Glucose 177(H) 70 - 100 mg/dL 12/19/2023 4:26 PM [facility] Comment:The given reference range is for the fasting state. Non-fasting reference range for glucose is 70 - 180 mg/dL. GFR, Estimated >60 >60 mL/min/1. 73m2 12/19/2023 4:26 PM [facility] Hours Fasting 12.0 8 - 12 Hours 12/19/2023 4:26 PM [facility] Blood Venipuncture / Unknown 12/19/2023 10:30 AM PR[employer] BOARDS LAMINATOR 12/19/2023 10:30 AM [facility] Love Mondragon MD LAB_1 Performing Organization Address [facility] Co de Phone Number [facility] [address] [address] [address] [place] [address] * Complete Blood Count-No Diff (12/19/2023 10:30 AM PRINTED CIRCUIT BOARDS LAMINATOR) [facility] WBC 7.3 3.5 - 10.5 x10(9)/L 12/19/2023 10:36 AM [facility] RBC 5.17 4.32 - 5.72 x10(12)/L 12/19/2023 10:36 AM [facility] Hemoglobin 15.5 13.5 - 17.5 g/dL 12/19/2023 10:36 AM [facility] HCT 44.3 38.8 - 50.0 % 12/19/2023 10:36 AM [facility] MCV 85.7 80.0 - 100.0 fL 12/19/2023 10:36 AM [facility] MCH 30.0 27.6 - 33.3 pg 12/19/2023 10:36 AM [facility] MCHC 35.0 31.5 - 35.2 g/dL 12/19/2023 10:36 AM [facility] RDW 12.5 11.9 - 15.5 % 12/19/2023 10:36 AM [facility] Platelets 227 150 - 450 x10(9)/L 12/19/2023 10:36 AM [facility] Blood Venipuncture / Unknown 12/19/2023 10:30 AM PRINTED CIRCUIT BOARDS LAMINATOR 12/19/2023 10:30 AM PRINTED CIRCUIT BOARDS LAMINATOR Love Mondragon MD LAB_1 [facility] [address] [place] [address] * XR Chest 2 Views (12/19/2023 10:23 AM PRINTED CIRCUIT BOARDS LAMINATOR) Anatomical Region Laterality Modality Chest, Lung Digital Radiogra phy 12/19/2023 10:2 3 AM PRINTED CIRCUIT BOARDS LAMINATOR Narrative 12/19/2023 4:06 PM PRINTED CIRCUIT BOARDS LAMINATOR EXAM: XR CHEST 2 VIEWS LOCATION: [facility] DATE: 12/19/2023 INDICATION: Atypical chest pain, Chest pain, unspecified COMPARISON: 06/28/2022 IMPRESSION: Negative chest. Procedure Note Quoc Ponce MD - 12/19/2023 EXAM: XR CHEST 2 VIEWS LOCATION: [facility] DATE: 12/19/2023 INDICATION: Atypical chest pain, Chest pain, unspecified COMPARISON: 06/28/2022 IMPRESSION: Negative chest. Love Mondragon MD RAD GD * (ABNORMAL) Lipid Panel & Direct LDL (if Needed) (07/21/2023 10:00 AM CDT) [facility] Signature Cholesterol 173 0 - 199 mg/dL 07/21/2023 6:24 PM CDT [facility] Triglyceride 160(H) <=149 mg/dL 07/21/2023 6:24 PM T [facility] HDL Cholesterol 25(L) >=40 mg/dL 07/21/2023 6:24 PM T [facility] LDL, Calculated 116 <130 mg/dL 07/21/2023 6:24 PM CDT [facility] Non HDL Chol, Calculated 148 <=159 mg/dL 07/21/2023 6:24 PM T [facility] Cholesterol/HDL Ratio 6.9(H) <=5.0 07/21/2023 6:24 PM T [facility] Hours Fasting 12.0 8 - 12 Hours 07/21/2023 6:24 PM [facility] Blood Venipuncture / Unknown 07/21/2023 10:00 AM CDT 07/21/2023 10:00 AM CDT Love Mondragon MD LAB_1 [facility] [id number] [place] [address] [place] [address] * (ABNORMAL) Hgb A1C (07/21/2023 10:00 AM CDT) Hemoglobin A1C 8.6(H) <=5.6 % 07/21/2023 4:32 PM CDT [facility] Estimated Average Glucose (Calc) 200 < 117 mg/dL 07/21/2023 4:32 PM CDT [facility] Comment:Estimated average gl ucose (eAG) converts A1c into glucose units (mg/dL) and estimates average glucose over the past approximately 3 months. The eAG reference interval (<117 mg/dL) corresponds to an A1c of <5.7%. Blood Venipuncture / Unknown 07/21/2023 10:00 AM CDT 07/21/2023 10:00 AM CDT Narrative [facility] - 07/21/2023 4:32 PM CDT For patients not previously diagnosed with diabetes: 5.7-6.4%: Increased risk for diabetes 6.5% and greater: Diagnostic for diabetes For patients diagnosed with diabetes: <8.0%: Goal of therapy for ages 18-75 Clinicians may recommend a higher or lower goal for specific individuals. Love Mondragon MD LAB_1 Performing Organization Address City/[facility]/ZIP Co de Phone Number [facility] [address] [address] * HIV ANTIBODY (01/03/2010 11:53 AM PRINTED CIRCUIT BOARDS LAMINATOR) [facility] HIV 1/2 Antibody Negative (Non Reactive) NEGNR [facility] Comment: HIV Antibody testing may be falsely negative during the window period. If the patient has had recent exposure (within the past four weeks), consider contacting Infectious Diseases for clarification. 01/03/2010 11:5 3 AM PRINTED CIRCUIT BOARDS LAMINATOR 01/03/2010 11:57 AM PRINTED CIRCUIT BOARDS LAMINATOR Quincy Holden MD LAB_1 Performing Organization Address [facility] Co de Phone Number [facility] [address] [phone] from Last 3 Months or Most Recently Relevant to Health Maintenance Advance Directives * No Code Status (Latest Code Status on File) Date Activated Date Inactivated Comments 08/19/2003 9:57 AM 08/19/2003 9:57 AM Care Teams Rn Infusion Relationship Specialty [place] [address] [place] [address] PCP - General Family Practice 09/18/12
--- OUTSIDE RECORDS SUMMARY | 2024-02-16 12:01 | XMS_ITS | Encounter Summary ---
Author Organization [facility] [address], [place] [address] Care Team Providers Care Parking Lot Manager Name Role Phone Love Mondragon MD Primary Care Provider [phone] Reason for Visit * Procedure/Equipment (Routine) - Closed Specialty Diagnoses / Procedures Referred By Contac t Referred To Contact Diagnoses Left-sided chest pain Procedures [place] [address] [place] [address] Referral ID Status Reason Start Date Expiration Date Visits Re quested Visits Authorized [id number] Closed 12/19/2023 03/19/2025 1 1 Encounter Details Date Type Department Care Team (Late st Contact Info) Description 01/09/2024 10:00 AM FRAME CARVER SPINDLE Procedure Visit [facility] Non-Invasive [facility] [address] [place] [address] Aung Matt Social History Tobacco Use Types Packs/Day Years [...] this encounter Patient Instructions * Patient Instructions* Pierce Florence - 01/09/2024 10:00 AM FRAME CARVER SPINDLE You had a test called: Exercise stress echocardiogram. This test will help your care provider team determine if you have narrowing in the arteries to yourheart muscle, if you have any irregular heart rhythm or if you have any problems with your heart valves or other heart structures. For this test you received a contrast agent called Optison. This agent improves the accuracy of thetest to detect potential heart problems. Your test will be interpreted by a physician later today. Your test results will be available to Love Mondragon MD. within one week. Please follow up with [facility] if you have not received your test results. E CARVER SPINDLE documented in this encounter Progress Notes * Pierce Florence - 01/09/2024 10:00 AM CST Test ordered Stress Echocardiogram Was today's stress test appointment changed? No. Primary Care Provider: Love Mondragon MD. Ordering provider: Love Mondragon MD. S Chief complaint: Chest pain Medical History Past Medical History: Diagnosis Date Diabetes mellitus type I (HRC) Hypothyroidism (HRC) Psychiatric disorder (HRC) Surgical History No past surgical history on file. Family History Family History Problem Relation Name Age of Onset Thyroid Disorder Mother Asthma Sister Diabetes, Type II Maternal Grandmother Diabetes Maternal Grandmother Deafness Maternal Grandfather Cancer, Other Paternal Grandfather Problem List Patient Active Problem List Diagnosis Attention deficit disorder Hypothyroidism (HRC) Obesity (HRC) Memory deficit Mild traumatic brain injury (HRC) Work related injury Injury of toe on right foot Contusion of right great toe without damage to nail Disorder of ligament of foot, right Tobacco History Social History Tobacco Use Smoking Status Never Smokeless Tobacco Never Medications Current Outpatient Medications Medication Sig Note Dispense Refill acyclovir (ZOVIRAX) 5 % ointment Apply TID for outbreaks 15 g 2 acyclovir (ZOVIRAX) 5 % ointment apply TID for outbreaks 05/30/2017: PRN 15 gram 2 ALBUterol sulfate HFA 108 (90 Base) MCG/ACT inhaler Inhale 2 Puffs every 4 hours as needed for Wheezing. 1 Each 2 CLINDAMYCIN PHOSPHATE (CLEOCIN-T) 1% TOPICAL SOLN Apply a thin film topically to the affected area(s) twice a day 05/30/2017: PRN 1bottle prn CONCERTA 36 MG controlled release tablet Take 1 Tablet (36 mg) by mouth daily. 30 Tablet 0 Continuous Glucose Sensor (FREESTYLE UCHE 3 PLUS SENSOR) MISC Change every 15 days 2 Each 11 diclofenac (VOLTAREN) 25 MG enteric coated tablet Take 1 Tab by mouth two times daily as needed. 05/30/2017: PRN 60 Tab 1 FISH OIL three times a day. ibuprofen (MOTRIN) 600 MG tablet Take 1 Tab by mouth every 6 hours as needed for Pain. 05/30/2017: PRN 20 Tab 0 levothyroxine (SYNTHROID) 150 MCG tablet Take 1 Tablet (150 mcg) by mouth daily. 30 Tablet 11 MULTI-VITAMIN/IRON OR takes 1 a day Naproxen (ECNAPROSYN) 500 MG enteric coated tablet Take 1 Tab by mouth two times a day with meals. 05/30/2017: PRN 60 Tab 3 No current facility-administered medications for this visit. Beta giovani held last 24 hours: NOT APPLICABLE Beta giovani held last 48 hours: NOT APPLICABLE Pre-procedure evaluation of patient's current pain: Pain Location: none Miscellaneous screening evaluation: No O Cholesterol Date Value 07/21/2023 173 mg/dL 02/08/2014 171 mg/dl 05/02/1998 149 mg/dl HDL (mg/dl) Date Value 02/08/2014 26 (L) HDL Cholesterol (mg/dL) Date Value 07/21/2023 25 (L) LDL, Calc. (mg/dl) Date Value 02/08/2014 124 LDL, Calculated (mg/dL) Date Value 07/21/2023 116 Triglyceride Date Value 07/21/2023 160 mg/dL (H) 02/08/2014 105 mg/dl Potassium (mmol/L) Date Value 12/19/2023 4.3 02/08/2014 4.7 Hemoglobin Date Value 12/19/2023 15.5 g/dL 07/05/2015 16.3 g/dl No results found for: TROP Finger stick glucose test: N/A. Was there a pre-test consultation? No. A Test completed, results filed separately. Is there a post-test consultation? No. P Follow up Care: Patient will follow up with Love Mondragon MD. at [facility]. Discharge Instructions: follow up with pcp Test done with pressing machine tender present: no 22 gauge IV catheter inserted by NUC in the right hand. IV site appears: normal with intact catheter. IV D/C'd by:PATRICIO. E CARVER SPINDLE documented in this encounter Plan of Treatment Not on file documented as of this encounter Procedures Procedure Name Priority Date/Time Associated Diagnosis Comments STRESS ECHO Routine 01/09/2024 10:36 AM FRAME CARVER SPINDLE Left-sided chest pain EJECTION FRACTION Routine 01/09/2024 10: 36 AM FRAME CARVER SPINDLE documented in this encounter Results * EJECTION FRACTION (01/09/2024 10:36 AM FRAME CARVER SPINDLE) EF 60 % PROSOLV EF test type CATH PROSOLV 01/09/2024 10:3 6 AM FRAME CARVER SPINDLE Love Mondragon MD [facility]ATH [facility] PROS[facility] [address] [place] [address] * Stress Echocardiogram (01/09/2024 10:36 AM FRAME CARVER SPINDLE) 01/09/2024 10:3 6 AM FRAME CARVER SPINDLE Narrative PROSOLV - 01/09/2024 11:50 AM FRAME CARVER SPINDLE Summary 1. The patient exercised for 11 [...] MD ET ECHO ORDERABLES Performing Organization Address City/State/[facility] Co de Phone Number PROS[facility] [address] [place] [address] documented in this encounter Visit Diagnoses Diagnosis Left-sided chest pain documented in this encounter Care Teams Parking Lot Manager Relationship Specialty [place] [address] [place] [address] PCP - General Family Practice 09/18/12 documented as of this encounter
--- OUTSIDE RECORDS SUMMARY | 2024-02-16 12:02 | XMS_ITS | Encounter Summary ---
Author Organization [facility]ly [facility] Address [address] [place] [address] Care Team Providers Care Incinerator Plant Laborer Name Role Phone Love Mondragon MD Primary Care Provider [phone] Encounter Details Date Type Department Care Team (Late st Contact Info) Description 01/12/2016 Correspondence [facility] [address] [place], [place] [phone] [place] [address] [place], [place] [phone] PATIENT ASSISTANCE PROGRAM APPLICATION Social History Tobacco Use Types Packs/Day Years Used Date Smoking Tobacco: Never Cigarettes Qu it: 02/10/2005 Smokeless Tobacco: Never Alcohol Use Standard Drinks/Week Comments Yes 0 (1 standard drink = 0.6 oz pur e alcohol) rare Sex and Gender Information Value Date Recorded Sex Assigned at Not on file Gender Identity Not on file Sexual Orientation Not on file documented as of this encounter Plan of Treatment Not on file documented as of this encounter Visit Diagnoses Not on filedocumented in this encounter Additional Health Concerns Infection Onset Date Last Indicated Resolved Time R/O COVID19 10/13/2020 10/13/2020 10/13/2020 8:40 PM CDT documented as of this encounter Care Teams Incinerator Plant Laborer Relationship Specialty [place] [address] [place] [address] PCP - General Family Practice 09/18/12 documented as of this encounter
--- OUTSIDE RECORDS SUMMARY | 2024-02-16 12:02 | XMS_ITS | Encounter Summary ---
Author Organization [facility] Address [address], [place] [address] Care Team Providers Care Hose Turner Name Role Phone Love Mondragon MD Primary Care Provider [phone] Encounter Details Date Type Department Care Team (Late st Contact Info) Description 04/11/2017 Correspondence None [facility], Provider MEDICAL EQUIPMENT PROOF OF DELIVERY Social History Tobacco Use Types Packs/Day Years [...] documented as of this encounter Care Teams Hose Turner Relationship Specialty [place] [address] [place] [address] PCP - General Family Practice 09/18/12 documented as of this encounter
--- OUTSIDE RECORDS SUMMARY | 2024-02-16 12:02 | XMS_ITS | Encounter Summary ---
Author Organization [facility] Address [address], [place] [address] Care Team Providers Care System Trainer Name Role Phone Love Mondragon MD Primary Care Provider [phone] Encounter Details Date Type Department Care Team (Late st Contact Info) Description 07/31/2017 Correspondence Physiatry/Physical Medicine at [facility] [address] [facility] [place], [place] [phone] Reina Isaac, ELECTRONICS COMPUTER MECHANIC, FARM CREW LEADER [address] [place], [place] [phone] HEALTH CARE PROVIDER REPORT Social History Tobacco Use Types Packs/Day Years [...] documented as of this encounter Care Teams System Trainer Relationship Specialty [place] [address] [place] [address] PCP - General Family Practice 09/18/12 documented as of this encounter
--- OUTSIDE RECORDS SUMMARY | 2024-02-16 12:02 | XMS_ITS | Encounter Summary ---
Author Organization [facility] Address [address] [place] [address] Care Team Providers Care Driveway Attendant Name Role Phone Love Mondragon MD Primary Care Provider [phone] Encounter Details Date Type Department Care Team (Late st Contact Info) Description 04/15/2016 Correspondence [facility] [address] [place], [place] [phone] [place] [address] [place], [place] [phone] PATIENT ASSISTANCE PROGRAM APPLICATION Social History Tobacco [...] documented as of this encounter Care Teams Driveway Attendant Relationship Specialty [place] [address] [place] [address] PCP - General Family Practice 09/18/12 documented as of this encounter
--- OUTSIDE RECORDS SUMMARY | 2024-02-16 12:02 | XMS_ITS | Encounter Summary ---
Author Organization [facility] Address [address], [place] [address] Care Team Providers Care Wire Coiler Machine Operator Name Role Phone Love Mondragon MD Primary Care Provider [phone] Encounter Details Date Type Department Care Team (Late st Contact Info) Description 04/11/2017 Correspondence None No Primary/Referring, Phy DME EQUIPMENT PROOF OF DELIVERY Social History Tobacco [...] documented as of this encounter Care Teams Wire Coiler Machine Operator Relationship Specialty [place] [address] [place] [address] PCP - General Family Practice 09/18/12 documented as of this encounter
--- OUTSIDE RECORDS SUMMARY | 2024-02-16 12:02 | XMS_ITS | Encounter Summary ---
Author Organization [facility] Address [address] [place] [address] Care Team Providers Care Stringer Up Soldering Machine Name Role Phone Love Mondragon MD Primary Care Provider [phone] Encounter Details Date Type Department Care Team (Late st Contact Info) Description 07/02/2016 Emergency Room External to External, [place] [address] HEAD INJURY WITH LOC Social History Tobacco Use Types Packs/Day Years [...] documented as of this encounter Care Teams Stringer Up Soldering Machine Relationship Specialty [place] [address] [place] [address] PCP - General Family Practice 09/18/12 documented as of this encounter
--- OUTSIDE RECORDS SUMMARY | 2024-02-16 12:02 | XMS_ITS | Encounter Summary ---
Author Organization [facility] Address [address] [place] [address] Care Team Providers Care Rn Ent Name Role Phone Love Mondragon MD Primary Care Provider Encounter Details Date Type Department Care Team (Latest Contact Info) Description 04/14/2017 Correspondence [facility] [address] [place], [place] [address]. [address] [place] [address] Carmel Marx MD INITIAL INJURY QUESTIONNAIRE Social History Tobacco Use Types Packs/Day Years [...] documented as of this encounter Care Teams Rn Ent Relationship Specialty [place] [address] [place] [address] PCP - General Family Practice 09/18/12 documented as of this encounter
--- OUTSIDE RECORDS SUMMARY | 2024-02-16 12:02 | XMS_ITS | Encounter Summary ---
Author Organization [facility] Address [address] [place] [address] Care Team Providers Care Clinical Services Consultant Name Role Phone Love Mondragon MD Primary Care Provider [phone] Reason for Visit * Reason Onset Date Comments Refill 01/05/2024 CONCERTA 36 MG c ontrolled release tablet Encounter Details Date Type Department Care Team (Late st Contact Info) Description 01/05/2024 Refill [facility] [address] [place] [address] [place] [address] [place] [address] Refill (CONCERTA 36 MG controlled release tablet) Social History Tobacco Use Types Packs/Day Years [...] as of this encounter Nursing Notes * Keenan Thorne Xrwcomm - 01/05/2024 11:27 AM CST CONCERTA 36 MG controlled release tablet Medication started: 02/09/2018 Last ordered by LOVE MONDRAGON S: 11/15/2023 (51 days ago) QTY: 30, Refills: 0, Sig: take 1 tablet (36 mg) by mouth daily. do not start before november 15, 2023. (changed) -> Unable to determine if sig has changed, review required. -> Medication cannot be delegated. Last qualifying visit: 12/19/2023 (with LOVE MONDRAGON) Next scheduled visit: None [facility] Embedded Refills, Reference: [id number], 01/05/2024 11:27:12 AM Aristeo BASS: Refill Centralized Services - Primary Care ([id number]) ICAL METHODS ANALYST * Fadumo Refillwizard Xrwcomm - 01/05/2024 11:27 AM CST No [facility] ICAL METHODS ANALYST * Annelise Garcia - 01/05/2024 11:25 AM CST Patient states must be in notes to pharmacy Toucher Up Brady name brand other generics cause adverse reactions ICAL METHODS ANALYST documented in this encounter Plan of Treatment Not on file documented as of this encounter Visit Diagnoses Diagnosis Hypothyroidism, unspecified type (HRC) documented in this encounter Care Teams Clinical Services Consultant Relationship Specialty [place] [address] [place] [address] PCP - General Family Practice 09/18/12 documented as of this encounter
--- OUTSIDE RECORDS SUMMARY | 2024-02-16 12:03 | XMS_ITS | Encounter Summary ---
Author Organization [facility] Address [address], [place] [address] Care Team Providers Care Customer Support Representative Name Role Phone Love Mondragon MD Primary Care Provider [phone] Encounter Details Date Type Department Care Team (Late st Contact Info) Description 06/22/1998 Orders Only [facility] Segun Hedrick MD Social History Tobacco Use Types Packs/Day Years [...] documented as of this encounter Care Teams Customer Support Representative Relationship Specialty [place] [address] [place] [address] PCP - General Family Practice 09/18/12 documented as of this encounter
--- OUTSIDE RECORDS SUMMARY | 2024-02-16 12:03 | XMS_ITS | Encounter Summary ---
Author Organization [facility] Address [address] [address] Care Team Providers Care Excelsior Machine Operator Name Role Phone Love Mondragon MD Primary Care Provider Encounter Details Date Type Department Care Team (Latest Contact Info) Description 05/18/1998 Orders Only Rene Owens MD [address] [place] [address] Social History Tobacco Use Types Packs/Day Years [...] documented as of this encounter Care Teams Excelsior Machine Operator Relationship Specialty [place] [address] [place] [address] PCP - General Family Practice 09/18/12 documented as of this encounter
--- OUTSIDE RECORDS SUMMARY | 2024-02-16 12:03 | XMS_ITS | Encounter Summary ---
Author Organization [facility] Address [address], [place] [address] Care Team Providers Care Special Effects Designer Name Role Phone Love Mondragon MD Primary Care Provider [phone] Encounter Details Date Type Department Care Team (Latest Contact Info) Description 11/04/1998 Orders Only Social History Tobacco Use Types Packs/Day Years Used Date Smoking Tobacco: Never Assessed Sex and Gender Information Value Date Recorded Sex Assigned at Not on file Gender Identity Not on file Sexual Orientation Not on file documented as of this encounter Procedure Notes * Clif Bagley - 11/04/1998 12:00 AM CDTAssociated Order(s): WRIST 3 VIEWS CLINICAL DATA: INJURY INTERPRETATION: LEFT WRIST 11/04/98. Normal. Clif Coleman MD Department of Radiology cc: Radiology AV Family Trauma I MD JENNIE documented in this encounter Plan of Treatment Not on file documented as of this encounter Procedures Procedure Name Priority Date/Time Associated Diagnosis Comments UNLISTED DX RADIOGRAPHIC PROCEDURE 11/04/1998 RADEX WRST COMPL MINIMUM 3 VIEWS 11/04/1998 12:00 AM CDT documented in this encounter Results * WRIST 3 VIEWS (11/04/1998 12:00 AM CDT) Anatomical Region Laterality Modality Other 11/04/1998 Narrative Transcriptions Clif Bagley - 11/04/1998 12:00 AM CDTCLINICAL DATA: INJURY INTERPRETATION: LEFT WRIST 11/04/98. Normal. Clif Coleman MD Department of Radiology cc: Radiology AV Family Trauma I MD JENNIE Full Range Avucc RAD_1 * RADIOGRAPHIC UNSPECIFIED PROCEDURE (11/04/1998) Anatomical Region Laterality Modality Other Narrative 11/04/1998 CLINICAL DATA: INJURY INTERPRETATION: LEFT WRIST 11/04/98. Normal. Clif Coleman MD Department of Radiology cc: Radiology AV Family Trauma I MD JENNIE Results Unmatched PAPS documented in this encounter Visit Diagnoses Not on filedocumented in this encounter Additional Health Concerns Infection Onset Date Last Indicated Resolved Time R/O COVID19 10/13/2020 10/13/2020 10/13/2020 8:40 PM CDT documented as of this encounter Care Teams Special Effects Designer Relationship Specialty [place] [address] [place] [address] PCP - General Family Practice 09/18/12 documented as of this encounter
--- OUTSIDE RECORDS SUMMARY | 2024-02-16 12:03 | XMS_ITS | Encounter Summary ---
Author Organization [facility] Address [address], [place] [address] Care Team Providers Care Professor Of Communication Arts Name Role Phone Love Mondragon MD Primary Care Provider [phone] Encounter Details Date Type Department Care Team (Late st Contact Info) Description 07/05/1997 Orders Only [facility] [place] [address] [place] [address] Social History Tobacco Use Types Packs/Day Years [...] documented as of this encounter Care Teams Professor Of Communication Arts Relationship Specialty [place] [address] [place] [address] PCP - General Family Practice 09/18/12 documented as of this encounter
--- OUTSIDE RECORDS SUMMARY | 2024-02-16 12:03 | XMS_ITS | Encounter Summary ---
Author Organization [facility] Address [address], [place] [address] Care Team Providers Care Desk Clerks Supervisor Name Role Phone Love Mondragon MD Primary Care Provider [phone] Encounter Details Date Type Department Care Team (Latest Contact Info) Description 06/21/1996 Orders Only Rene Owens MD [address] [place] [address] Social History Tobacco Use Types Packs/Day Years [...] documented as of this encounter Care Teams Desk Clerks Supervisor Relationship Specialty [place] [address] [place] [address] PCP - General Family Practice 09/18/12 documented as of this encounter
--- OUTSIDE RECORDS SUMMARY | 2024-02-16 12:03 | XMS_ITS | Encounter Summary ---
Author Organization [facility] Address [address], [place] [address] Care Team Providers Care Clinical Statistical Programmer Name Role Phone Love Mondragon MD Primary Care Provider [phone] Encounter Details Date Type Department Care Team (Late st Contact Info) Description 11/04/1995 Orders Only [facility] Segun Hedrick MD [...] documented as of this encounter Care Teams Clinical Statistical Programmer Relationship Specialty [place] [address] [place] [address] PCP - General Family Practice 09/18/12 documented as of this encounter
--- OUTSIDE RECORDS SUMMARY | 2024-02-16 12:03 | XMS_ITS | Encounter Summary ---
[facility] Organization [facility] Address [address], [place] [address] Care Team Providers Care Director Of Sales Support Name Role Phone Love Mondragon MD Primary Care Provider [phone] Encounter Details Date Type Department Care Team (Latest Contact Info) Description 03/28/1997 Orders Only Rodriguez Contreras MD Social History Tobacco Use Types Packs/Day [...] documented as of this encounter Care Teams Director Of Sales Support Relationship Specialty [place] [address] [place], [place] [id number] PCP - General Family Practice 09/18/12 documented as of this encounter
--- OUTSIDE RECORDS SUMMARY | 2024-02-16 12:03 | XMS_ITS | Encounter Summary ---
Author Organization [facility] Address [address] [address] Care Team Providers Care Broadcast Checker Name Role Phone Love Mondragon MD Primary Care Provider [phone] Encounter Details Date Type Department Care Team (Latest Contact Info) Description 07/11/1996 Orders Only Citlaly Palomares MD Social History Tobacco Use Types Packs/Day [...] documented as of this encounter Care Teams Broadcast Checker Relationship Specialty [place] [address] [place], [place] [id number] PCP - General Family Practice 09/18/12 documented as of this encounter
--- OUTSIDE RECORDS SUMMARY | 2024-02-16 12:03 | XMS_ITS | Encounter Summary ---
Author Organization [facility] Address [address] [place] [address] Care Team Providers Care Boats Renter Name Role Phone Love Mondragon MD Primary Care Provider [phone] Encounter Details Date Type Department Care Team (Latest Contact Info) Description 03/08/1996 Orders Only Rene Owens MD [address] [place] [address] Social History Tobacco Use Types Packs/Day Years [...] documented as of this encounter Care Teams Boats Renter Relationship Specialty [place] [address] [place] [address] PCP - General Family Practice 09/18/12 documented as of this encounter
--- OUTSIDE RECORDS SUMMARY | 2024-02-16 12:03 | XMS_ITS | Encounter Summary ---
Author Organization [facility] Address [address] [address] Care Team Providers Care Waiter/Waitress Formal Name Role Phone Love Mondragon MD Primary Care Provider [phone] Encounter Details Date Type Department Care Team (Latest Contact Info) Description 10/15/1996 Orders Only Rene Owens MD [address] [place] [address] Social History Tobacco Use Types Packs/Day Years [...] documented as of this encounter Care Teams Waiter/Waitress Formal Relationship Specialty [place] [address] [place] [address] PCP - General Family Practice 09/18/12 documented as of this encounter
--- OUTSIDE RECORDS SUMMARY | 2024-02-16 12:03 | XMS_ITS | Encounter Summary ---
Author Organization [facility] Address [address], [place] [address] Care Team Providers Care Knotting Machine Operator Portable Name Role Phone Love Mondragon MD Primary Care Provider [phone] Encounter Details Date Type Department Care Team (Late st Contact Info) Description 04/27/1996 Orders Only [facility] [place] [address] [facility] [id number] Social History Tobacco Use Types Packs/Day [...] documented as of this encounter Care Teams Knotting Machine Operator Portable Relationship Specialty [place] [address] [place] [address] PCP - General Family Practice 09/18/12 documented as of this encounter
--- OUTSIDE RECORDS SUMMARY | 2024-02-16 12:03 | XMS_ITS | Encounter Summary ---
Author Organization [facility] Address [address] [address] Care Team Providers Care Fish Conservationist Name Role Phone Love Mondragon MD Primary Care Provider [phone] Encounter Details Date Type Department Care Team (Latest Contact Info) Description 12/08/1997 Orders Only Rene Owens MD [address] [place] [address] Social History Tobacco Use Types Packs/Day Years [...] documented as of this encounter Care Teams Fish Conservationist Relationship Specialty [place] [address] [place] [address] PCP - General Family Practice 09/18/12 documented as of this encounter
--- OUTSIDE RECORDS SUMMARY | 2024-02-16 12:03 | XMS_ITS | Encounter Summary ---
Author Organization [facility] Address [address], [place] [address] Care Team Providers Care Commissary Steward Name Role Phone Love Mondragon MD Primary Care Provider [phone] Encounter Details Date Type Department Care Team (Latest Contact Info) Description 03/16/1998 Orders Only Rene Owens MD [address] [place] [address] Social History Tobacco Use Types Packs/Day Years [...] documented as of this encounter Care Teams Commissary Steward Relationship Specialty [place] [address] [place] [address] PCP - General Family Practice 09/18/12 documented as of this encounter
--- OUTSIDE RECORDS SUMMARY | 2024-02-16 12:03 | XMS_ITS | Encounter Summary ---
Author Organization [facility] Address [address] [address] Care Team Providers Care Cotton Expert Name Role Phone Love Mondragon MD Primary Care Provider [phone] Encounter Details Date Type Department Care Team (Latest Contact Info) Description 08/11/1998 Orders Only Rene Owens MD [address] [place] [address] Social History Tobacco Use Types Packs/Day Years [...] documented as of this encounter Care Teams Cotton Expert Relationship Specialty [place] [address] [place] [address] PCP - General Family Practice 09/18/12 documented as of this encounter
--- OUTSIDE RECORDS SUMMARY | 2024-02-16 12:03 | XMS_ITS | Encounter Summary ---
Author Organization [facility] Address [address] [address] Care Team Providers Care Touch Up Carver Name Role Phone Love Mondragon MD Primary Care Provider [phone] Encounter Details Date Type Department Care Team (Late st Contact Info) Description 11/18/1996 Orders Only [facility] [place] [address] [place] [address] Social History Tobacco Use Types Packs/Day [...] documented as of this encounter Care Teams Touch Up Carver Relationship Specialty [place] [address] [place] [address] PCP - General Family Practice 09/18/12 documented as of this encounter
--- OUTSIDE RECORDS SUMMARY | 2024-02-16 12:03 | XMS_ITS | Encounter Summary ---
Author Organization [facility] Address [address], [place] [address] Care Team Providers Care Sanding Line Operator Name Role Phone Love Mondragon MD Primary Care Provider Encounter Details Date Type Department Care Team (Latest Contact Info) Description 06/16/1995 Orders Only Rene Owens MD [address] [place] [address] Social History Tobacco Use Types Packs/Day Years [...] documented as of this encounter Care Teams Sanding Line Operator Relationship Specialty [place] [address] [place] [address] PCP - General Family Practice 09/18/12 documented as of this encounter
--- OUTSIDE RECORDS SUMMARY | 2024-02-16 12:03 | XMS_ITS | Encounter Summary ---
Author Organization [facility] Address [address] [place] [address] Care Team Providers Care Farm Loan Representative Name Role Phone Love Mondragon MD Primary Care Provider [phone] Encounter Details Date Type Department Care Team (Late st Contact Info) Description 08/18/2014 Correspondence External to External, [place] [address] PRIOR AUTH REQUEST RX METHYLPHENIDATE Social History Tobacco Use Types Packs/Day Years [...] documented as of this encounter Care Teams Farm Loan Representative Relationship Specialty [place] [address] [place] [address] PCP - General Family Practice 09/18/12 documented as of this encounter
--- OUTSIDE RECORDS SUMMARY | 2024-02-16 12:04 | XMS_ITS | Encounter Summary ---
Author Organization [facility] Address [address], [place] [address] Care Team Providers Care Welfare Eligibility Worker Name Role Phone Love Mondragon MD Primary Care Provider [phone] Encounter Details Date Type Department Care Team (Latest Contact Info) Description 02/26/1995 Orders Only Rene Owens MD [address] [place] [address] Social History Tobacco Use Types Packs/Day Years [...] documented as of this encounter Care Teams Welfare Eligibility Worker Relationship Specialty [place] [address] [place] [address] PCP - General Family Practice 09/18/12 documented as of this encounter
--- OUTSIDE RECORDS SUMMARY | 2024-02-16 12:04 | XMS_ITS | Encounter Summary ---
Author Organization [facility] Address [address], [place] [address] Care Team Providers Care Single Ending Machine Operator Name Role Phone Love Mondragon MD Primary Care Provider [phone] Encounter Details Date Type Department Care Team (Latest Contact Info) Description 06/13/1995 Orders Only Rene Owens MD [address] [place] [address] Social History Tobacco Use Types Packs/Day Years [...] documented as of this encounter Care Teams Single Ending Machine Operator Relationship Specialty [place] [address] [place] [address] PCP - General Family Practice 09/18/12 documented as of this encounter
--- OUTSIDE RECORDS SUMMARY | 2024-02-16 12:04 | XMS_ITS | Encounter Summary ---
Author Organization [facility] Address [address], [place] [address] Care Team Providers Care Curling Machine Operator Name Role Phone Love Mondragon MD Primary Care Provider [phone] Encounter Details Date Type Department Care Team (Late st Contact Info) Description 03/29/1994 Orders Only [facility] Dorina Em MD Social History Tobacco Use Types Packs/Day [...] documented as of this encounter Care Teams Curling Machine Operator Relationship Specialty [place] [address] [place] [address] PCP - General Family Practice 09/18/12 documented as of this encounter
--- OUTSIDE RECORDS SUMMARY | 2024-02-16 12:04 | XMS_ITS | Encounter Summary ---
Author Organization [facility] Address [address], [place] [address] Care Team Providers Care Plasterer Rough Name Role Phone Love Mondragon MD Primary Care Provider [phone] Encounter Details Date Type Department Care Team (Latest Contact Info) Description 12/25/1994 Orders Only Rene Owens MD [address] [place] [address] Social History Tobacco Use Types Packs/Day Years [...] documented as of this encounter Care Teams Plasterer Rough Relationship Specialty [place] [address] [place] [address] PCP - General Family Practice 09/18/12 documented as of this encounter
--- OUTSIDE RECORDS SUMMARY | 2024-02-16 12:04 | XMS_ITS | Encounter Summary ---
Author Organization [facility] Address [address] [address] Care Team Providers Care Fish Stringer Assembler Name Role Phone Love Mondragon MD Primary Care Provider [phone] Encounter Details Date Type Department Care Team (Late st Contact Info) Description 02/20/1994 Orders Only [facility] Dorina Em MD [...] as of this encounter Care Teams Fish Stringer Assembler Relationship Specialty [place] [address] [place] [address] PCP - General Family Practice 09/18/12 documented as of this encounter
--- OUTSIDE RECORDS SUMMARY | 2024-02-16 12:04 | XMS_ITS | Encounter Summary ---
Author Organization [facility] Address [address], [place] [address] Care Team Providers Care Block Feeder Name Role Phone Love Mondragon MD Primary Care Provider [phone] Encounter Details Date Type Department Care Team (Latest Contact Info) Description 05/22/1994 Orders Only Rene Owens MD [address] [place] [address] Social History Tobacco Use Types Packs/Day Years [...] documented as of this encounter Care Teams Block Feeder Relationship Specialty [place] [address] [place] [address] PCP - General Family Practice 09/18/12 documented as of this encounter
--- OUTSIDE RECORDS SUMMARY | 2024-02-16 12:04 | XMS_ITS | Encounter Summary ---
Author Organization [facility] Address [address], [place] [address] Care Team Providers Care Broadcast Systems Engineer Name Role Phone Love Mondragon MD Primary Care Provider [phone] Encounter Details Date Type Department Care Team (Latest Contact Info) Description 06/21/1994 Orders Only Rene Owens MD [address] [place] [address] Social History Tobacco Use Types Packs/Day Years [...] as of this encounter Care Teams Broadcast Systems Engineer Relationship Specialty [place] [address] [place] [address] PCP - General Family Practice 09/18/12 documented as of this encounter
--- OUTSIDE RECORDS SUMMARY | 2024-02-16 12:04 | XMS_ITS | Encounter Summary ---
Author Organization [facility] Address [address], [place] [address] Care Team Providers Care Stock Preparer Name Role Phone Love Mondragon MD Primary Care Provider [phone] Encounter Details Date Type Department Care Team (Latest Contact Info) Description 10/17/1994 Orders Only Rene Owens MD [address] [place] [address] Social History Tobacco Use Types Packs/Day Years [...] documented as of this encounter Care Teams Stock Preparer Relationship Specialty [place] [address] [place] [address] PCP - General Family Practice 09/18/12 documented as of this encounter
[2024-02-16 12:11] VITALS: BP 141/86; PULSE 83; RESP 20; TEMP 36.6; O2SAT 98; BMI 36.3
--- NOTE | 2024-02-16 12:27 | CRLHL7_ITS ---
For Patients: As a result of the Century Cures Act, medical imaging exams and procedure reports are released immediately into your electronic medical record. You may view this report before your referring provider. If you have questions, please contact your health care provider. INDICATION: Right flank pain. TECHNIQUE: CT abdomen and pelvis without contrast. COMPARISON: CT abdomen/pelvis dated 12/06/2023. FINDINGS: Lower chest: No focal consolidation. Punctate calcified granuloma in the right lower lobe. Evaluation of solid organs is limited secondary to lack of IV contrast administration. Liver: Diffuse hepatic steatosis. Hepatomegaly. Gallbladder and bile ducts: Layering hyperdense gallbladder sludge. No secondary signs of acute cholecystitis. Pancreas: Unremarkable. Spleen: Mild splenomegaly. Adrenal glands: Unremarkable. Kidneys: 0.3 cm calculus at the right ureterovesicular junction, resulting in mild right hydronephrosis. No calculi identified in the left renal collecting system. Simple appearing left renal cyst. Retroperitoneum: No lymphadenopathy. Bowel and mesentery: Bowel is not obstructed. No significant ascites, no pneumoperitoneum. Normal appendix. Bladder: Unremarkable for degree of distention. Reproductive organs: No prostatomegaly. Pelvic lymph nodes: No lymphadenopathy. Vessels: Unremarkable for unenhanced study. Abdominal wall: No acute abdominal wall abnormality. Bones: Multilevel degenerative changes of the spine. No suspicious/aggressive focal osseous lesion. IMPRESSION: 1. Obstructing 0.3 cm calculus at the right ureterovesicular junction, results in mild right hydronephrosis. 2. Diffuse hepatic steatosis. 3. Hepatosplenomegaly. Please note that all CT scans at this facility use dose modulation, iterative reconstruction, and/or weight-based dosing when appropriate to reduce radiation dose to as low as reasonably achievable. Dictated by Madie Cerda MD @ 02/16/2024 2:25:35 PM (Electronically Signed)
[2024-02-16] MEDS: 0.9 % SODIUM CHLORIDE 1000 ml 1,000 ML IV (13:08)
--- NOTE | 2024-02-16 13:08 | ED.GENADULT ---
HPI - General Adult General Chief complaint: Urogenital Problems, Male Stated complaint: kidney/back pain - vomiting Time Seen by Provider: 02/16/24 12:17 Source: patient Mode of arrival: ambulatory Limitations: no limitations History of Present Illness HPI narrative: 38-year-old male coming in today with right flank pain that started this morning. Pain is sharp in comes in waves, causes significant vomiting and he has not been able to keep anything down all morning. Denies any fevers. The pain radiates just around to the front of the abdomen, does not radiate into his groin. He is noticed that his urine is very dark. He denies seeing any red blood in his urine. He denies chest pain. Complains of feeling uncomfortable diffuse abdominal discomfort, unsure if that is because of the multiple episodes of vomiting today. Denies any diarrhea. Patient did have a right-sided kidney stone approximately 2 months ago ands it feels very similar to that. He was recently diagnosed with diabetes type 2, he is not on any treatment. He has been dealing with her sugars with diet and exercise. He noticed that his blood sugar this morning was 300, which is unusual for him. Related Data Home Medications ?Medication ?Instructions ?Recorded ?Confirmed levothyroxine 150 mcg tablet 150 mcg PO DAILY 12/06/23 02/16/24 methylphenidate HCl 36 mg 36 mg PO DAILY 12/06/23 02/16/24 tablet,extended release 24 hr (Concerta) Previous Rx's ?Medication ?Instructions ?Recorded ketorolac 10 mg tablet 10 mg PO TID 5 days #15 tabs 02/16/24 ondansetron HCl 4 mg tablet 4 mg PO TID PRN nausea and 02/16/24 vomiting #10 tabs Allergies Allergy/AdvReac Type Severity Reaction Status Date / Time Milk Containing Products Allergy Mild Verified 02/16/24 12:15 (Dairy) Review of Systems Status of ROS: Reports: 10 or more systems reviewed and unremarkable except as noted in History and below [facility] Medical History ADHD ?F90.9 - Attention-deficit hyperactivity disorder, unspecified type (ICD-10) Hypothyroidism ?E03.9 - Hypothyroidism, unspecified (ICD-10) Social History Smoking Status: Smoker, status unknown Non-prescribed substance use: denies use Exam Narrative: Exam Narrative: Overweight, well-developed patient in no acute distress. Alert and oriented. Answers questions appropriately. Mood and affect are appropriate. Thoughts are goal oriented and rational. No tangential or magical thinking noted. Patient speaks in full sentences without needing to catch their breath. HEENT: Normocephalic atraumatic. Pupils are equally round reactive to light. Extraocular muscles are intact. Conjunctivae are moist without any icterus noted. Moist mucous membranes. Posterior pharynx is normal. Neck is soft without any lymphadenopathy or thyromegaly. No masses are appreciated. Cardiovascular: Heart is regular rate and rhythm S1 and S2 are present without any murmurs. Lungs: Clear to auscultation bilaterally no wheezes rhonchi or rales are appreciated. Patient takes deep breaths without any discomfort. Abdomen: Soft, protuberant and nondistended with normal bowel sounds. No guarding or rebound. He has very minimal tenderness in the epigastric region. No significant CVA tenderness. Extremities: Bilateral lower extremities are without edema. Skin: Well perfused without any obvious rashes. Const: Vital Signs, click to edit/add: Vital Signs - 24 hr 02/16/24 12:11 02/16/24 13:15 02/16/24 14:10 Temperature 98 F Pulse Rate 85 Pulse Rate [Pulse Oximeter] 83 81 Respiratory Rate 20 20 20 Blood Pressure [Ri ght Upper Arm] 141/86 H 123/75 Pulse Oximetry 98 97 95 Oxygen Delivery Me thod Room Air Room Air Room Air Course Course ED Course: CBC is unremarkable. Chemistries are normal with normal renal function. Glucose is elevated at 265 a. Normal lactate. LFTs are mildly elevated although improved from when they were checked in November. UA has 3+ glucose and 2+ blood, 5-10 rbc's. Patient was quite concerned that his symptoms were due to some kind of viral infection and so we did do a COVID and influenza swab which were both negative. Abdominal CT shows a 3 mm stone at the right ureterovesicular junction. Patient received a L of normal saline while he was here. He did not require any pain medication. Vital Signs Vital signs: Initial Vital Signs Temperature 98 F 02/16/24 12:11 Temperature Source Temporal Artery Scan 02/16/24 12:11 Pulse Rate 83 02/16/24 12:11 Pulse Rhythm Regular 02/16/24 12:11 Respiratory Rate 20 02/16/24 12:11 Blood Pressure 141/86 H 02/16/24 12:11 Blood Pressure Mean 104 02/16/24 12:11 Pulse Oximetry 98 02/16/24 12:11 Oxygen Delivery Method Room Air 02/16/24 12:11 Vital Signs Temperature 98 F 02/16/24 12:11 Pulse Rate 83 02/16/24 12:11 Respiratory Rate 20 02/16/24 12:11 Blood Pressure 141/86 H 02/16/24 12:11 Pulse Oximetry 98 02/16/24 12:11 Oxygen Delivery Method Room Air 02/16/24 12:11 Temperature 98 F 02/16/24 12:11 Pulse Rate 85 02/16/24 14:10 Respiratory Rate 20 02/16/24 14:10 Blood Pressure 123/75 02/16/24 13:15 Pulse Oximetry 95 02/16/24 14:10 Oxygen Delivery Method Room Air 02/16/24 14:10 Medications Administered Medications: Discontinued Medications Generic Name Dose Route Start Last Admin Trade Name Freq PRN Reason Stop Dose Admin Sodium Chloride 1,000 mls @ 1,000 mls/hr 02/16/24 12:30 02/16/24 14:34 0.9 % Sodium Chloride 1000 Ml IV 02/16/24 13:29 Infused .Q1H KYARA Infusion Medical Decision Making MDM Narrative Medical decision making narrative: 38-year-old male with a 3 mm stone at the right ureterovesicular junction. The patient will be sent home with Toradol Zofran on Flomax. Follow-up with PCP as needed. Return to ER for fevers, uncontrollable pain or vomiting. Lab Data Lab results reviewed: Yes I reviewed the patient's lab results Labs: Lab Results 02/16/24 02/16/24 Range/Units 12:40 13:02 WBC 9.23 (4.50-11.00) K/uL RBC 5.22 (4.30-5.90) m/uL Hgb 15.6 (13.5-17.5) gm/dL Hct 44.0 (37.0-53.0) % MCV 84 (80-100) fL MCH 30 (26-34) pg MCHC 36 (32-36) gm/dL RDW Coeff of [place] 12.0 (11.5-15.5) % Plt Count 207 (140-440) K/uL Neut % (Auto) 83.6 H (42.0-72.0) % Lymph % (Auto) 12.4 L (20-44) % [place] % (Auto) 3.3 (0.0-11.0) % Eos % (Auto) 0.2 (0.0-7.0) % Baso % (Auto) 0.2 (0.0-3.0) % Neut # (Auto) 7.70 H (1.7-7.0) K/uL Lymph # (Auto) 1.10 (0.90-2.90) K/uL [place] # (Auto) 0.30 (0.00-0.90) K/UL Eos # (Auto) 0.02 (0.00-0.50) K/uL Baso # (Auto) 0.02 (0.00-0.30) K/uL Abs Immat Gran (auto) 0.03 (0.00-0.30) K/uL Imm/Tot Granulo (auto) 0.3 % Sodium 135 (135-149) mmol/L Potassium 4.3 (3.6-5.1) mmol/L Chloride 102 (96-114) mmol/L Carbon Dioxide 24 (20-32) mmol/L Anion Gap 9 (7-15) mEq/L BUN 16 (5-24) mg/dL Creatinine 0.7 (0.5-1.5) mg/dL Estimated Creat Clear 158.59 Estimated GFR 122 ml/min Glucose 265 H (60-115) mg/dL Lactate 1.4 (0.5-1.9) mmol/L Calcium 9.3 (8.4-10.6) mg/dL Total Bilirubin 1.0 (0.1-1.5) mg/dL Direct Bilirubin 0.3 (0.0-0.5) mg/dL AST 49 H (12-35) U/L ALT 79 H (4-50) U/L Alkaline Phosphatase 81 (40-150) U/L Total Protein 7.1 (6.0-8.3) g/dL Albumin 4.4 (3.3-5.0) g/dL Lipase 46 (23-300) U/L Urine Color Yellow (Yellow) Urine Appearance Clear (Clear) Urine pH 5.5 (5.0-8.5) Ur Specific [place] 1.015 (1.000-1.030) Urine Protein Trace A (Negative) Urine Glucose (UA) 3+ A (Negative) Urine Ketones Trace A (Negative) Urine Blood 2+ A (Negative) Urine Nitrite Negative (Negative) Urine Bilirubin Negative (Negative) Urine Urobilinogen 0.2 (0.2-1.0) Ur Leukocyte Esterase Negative (Negative) Urine RBC 5-10 A (0-2) Urine WBC 0-2 (0-5) Ur Squamous Epith Cells None (None-Few) Urine Bacteria None (None) Fine Granular Casts Few A (None) SARS-CoV-2 (PCR) Negative SARS-CoV-2 (Negative) Influenza Type A (PCR) Negative PCR FLU A (Negative) Influenza Type B (PCR) Negative PCR FLU B (Negative) Imaging Data CT scan - abdomen: Attestation: I have reviewed the pertinent imaging results. Radiologist's impression: Right flank pain. TECHNIQUE: CT abdomen and pelvis without contrast. COMPARISON: CT abdomen/pelvis dated 12/06/2023. FINDINGS: Lower chest: No focal consolidation. Punctate calcified granuloma in the right lower lobe. Evaluation of solid organs is limited secondary to lack of IV contrast administration. Liver: Diffuse hepatic steatosis. Hepatomegaly. Gallbladder and bile ducts: Layering hyperdense gallbladder sludge. No secondary signs of acute cholecystitis. Pancreas: Unremarkable. Spleen: Mild splenomegaly. Adrenal glands: Unremarkable. Kidneys: 0.3 cm calculus at the right ureterovesicular junction, resulting in mild right hydronephrosis. No calculi identified in the left renal collecting system. Simple appearing left renal cyst. Retroperitoneum: No lymphadenopathy. Bowel and mesentery: Bowel is not obstructed. No significant ascites, no pneumoperitoneum. Normal appendix. Bladder: Unremarkable for degree of distention. Reproductive organs: No prostatomegaly. Pelvic lymph nodes: No lymphadenopathy. Vessels: Unremarkable for unenhanced study. Abdominal wall: No acute abdominal wall abnormality. Bones: Multilevel degenerative changes of the spine. No suspicious/aggressive focal osseous lesion. IMPRESSION: 1. Obstructing 0.3 cm calculus at the right ureterovesicular junction, results in mild right hydronephrosis. 2. Diffuse hepatic steatosis. 3. Hepatosplenomegaly. Discharge Plan Discharge Clinical Impression: Kidney stone Patient Disposition: Home, Self-Care Condition: Stable Instructions: How to Strain Your Urine (ED) Additional Instructions: Okay to take ketorolac as needed for pain. Okay to take ondansetron as needed for nausea/vomiting. Return to the emergency department if you develop a fever or uncontrollable pain. The stone is small enough that it should pass on its own. Prescriptions: New ondansetron HCl 4 mg tablet 4 mg PO TID PRN (Reason: nausea and vomiting) Qty: 10 0RF ketorolac 10 mg tablet 10 mg PO TID 5 Days Qty: 15 0RF No Action levothyroxine 150 mcg tablet 150 mcg PO DAILY methylphenidate HCl [Concerta] 36 mg tablet extended release 24hr 36 mg PO DAILY Follow Up/Referrals: Provider,Not a Local [Primary Care Provider] - Stand Alone Forms: [place] Info Instructions
[2024-02-16 13:09] LABS: Appearance Urine Clear (Clear); Bilirubin Urine Negative (Negative); Blood Urine 2+ (Negative); Color Urine Yellow (Yellow); Glucose Urine 3+ (Negative); Ketones Urine Trace (Negative); Leukocyte Esterase Urine Negative (Negative); Nitrite Urine Negative (Negative); Protein Urine Trace (Negative); Specific Gravity Urine 1.015 (1.000-1.030); Urobilinogen Urine 0.2 (0.2-1.0); pH Urine 5.5 (5.0-8.5)
[2024-02-16 13:11] LABS: Lactate* 1.4 mmol/L (0.5-1.9)
[2024-02-16 13:12] LABS: Basophils Absolute Auto 0.02 K/uL (0.00-0.30); Basophils Percent Auto 0.2 % (0.0-3.0); Eosinophils Absolute Auto 0.02 K/uL (0.00-0.50); Eosinophils Percent Auto 0.2 % (0.0-7.0); Hemoglobin* 15.6 gm/dL (13.5-17.5); Immature Granulocytes Abs Auto 0.03 K/uL (0.00-0.30); Immature Granulocytes Pct Auto 0.3 %; Lymphocytes Percent Auto 12.4 % (20-44); Mean Corpuscular HGB Conc 36 gm/dL (32-36); Mean Corpuscular Hemoglobin 30 pg (26-34); Mean Corpuscular Volume 84 fL (80-100); Monocytes Percent Auto 3.3 % (0.0-11.0); Neutrophils Percent Auto 83.6 % (42.0-72.0); Platelet Count* 207 K/uL (140-440); Red Blood Count 5.22 m/uL (4.30-5.90); White Blood Count* 9.23 K/uL (4.50-11.00)
[2024-02-16 13:13] LABS: Slide Review Reflex No
[2024-02-16 13:15] VITALS: BP 123/75; PULSE 81; RESP 20; O2SAT 97
[2024-02-16 13:24] LABS: Fine Granular Casts Urine Few; WBC Urine 0-2 (0-5)
[2024-02-16 13:26] LABS: Chloride* 102 mmol/L (96-114)
[2024-02-16 13:27] LABS: Albumin* 4.4 g/dL (3.3-5.0); Potassium* 4.3 mmol/L (3.6-5.1); Sodium* 135 mmol/L (135-149)
[2024-02-16 13:29] LABS: Creatinine* 0.7 mg/dL (0.5-1.5); Est. Creatinine Clearance* 158.59; Estimated Glomerular Filt Rate 122 ml/min
[2024-02-16 13:30] LABS: Anion Gap 9 mEq/L (7-15); Aspartate Amino Transferase* 49 U/L (12-35); Bilirubin Direct* 0.3 mg/dL (0.0-0.5); Blood Urea Nitrogen* 16 mg/dL (5-24); Calcium* 9.3 mg/dL (8.4-10.6); Carbon Dioxide* 24 mmol/L (20-32); Glucose* 265 mg/dL (60-115); Total Protein* 7.1 g/dL (6.0-8.3)
[2024-02-16 13:31] LABS: Alanine Aminotransferase* 79 U/L (4-50); Alkaline Phosphatase* 81 U/L (40-150); Lipase* 46 U/L (23-300)
[2024-02-16 13:43] LABS: PCR FLU A Negative PCR FLU A (Negative); PCR FLU B Negative PCR FLU B (Negative); SARS PCR* Negative SARS-CoV-2 (Negative)
[2024-02-16 14:05] VITALS: BP 115/76
[2024-02-16 14:10] VITALS: PULSE 85; RESP 20; O2SAT 95
[2024-02-16 15:01] VITALS: PULSE 73; RESP 20; O2SAT 99
== END 2024-02-16 15:02 | disposition home or self-care (01) ==
PROVIDERS: Emergency Provider Family Medicine
DX: N20.0 Calculus of kidney (principal)
CPT/HCPCS: 36415; 74176; 80048; 80076; 81001; 83605; 83690; 85025; 87086; 87631; 96360; 99284; J7030